=== PATIENT | female | born 1960 | race Caucasian/White ===

== ENCOUNTER 2022-04-29 08:22 | Outpatient (CLI) | payer OTHER, SELFPAY ==
--- NOTE | 2022-04-29 | ECHO_ITS ---
Patient Info Name: Dilcia Arzola Age: 61 years : 1960 Gender: Female Ht: 63 in Wt: 194 lbs BSA: 2.02 m2 HR: 83 bpm BP: 110 / 73 mmHg Heart Rhythm: Sinus Rhythm Exam Date: 04/29/2022 9:23 AM Exam Location: [facility] Pulmonary Patient Status: Outpatient Admit Date: 04/29/2022 Staff Ordering Physician: PerryJeffery MD Brake Operator Helper: Jorden Rocha, MARYBETH, RT Attending Provider: PerryJeffery MD Exam Type: CA echo doppler color flow Study Info Indications R06.02 - Shortness of breath Complete two-dimensional, color flow and Doppler transthoracic echocardiogram is performed. Strain analysis performed. Summary 1. Complete two-dimensional, color flow and Doppler transthoracic echocardiogram is performed. 2. Left ventricular systolic function is normal, estimated at 60-65%. 3. The left ventricular diastolic function is grade I diastolic dysfunction. 4. Right ventricular systolic function is normal. 5. The aortic root size at the sinus of Valsalva is dilated. 6. No significant valvular disease. Left Ventricle Left ventricular chamber dimension is normal. Left ventricular systolic function is normal, estimated at 60-65%. There is no increased left ventricular wall thickness. The left ventricular diastolic function is grade I diastolic dysfunction. Global longitudinal strain is -20 %. Right Ventricle Right ventricular chamber dimension is normal. Right ventricular systolic function is normal. Left Atria Left atrial chamber dimension is normal. Right Atria Right atrial chamber dimension is normal. Atrial Septum Intact interatrial septum visualized by color flow imaging. Aortic Valve The aortic valve is probable trileaflet. There is no aortic valve stenosis. There is no aortic valve regurgitation. Pulmonic Valve The pulmonic valve is not well visualized. Mitral Valve The mitral valve has normal leaflets. There is no mitral valve stenosis. There is trace mitral valve regurgitation. Tricuspid Valve There is trace tricuspid valve regurgitation. Pericardium/Pleural There is no pericardial effusion. Inferior Vena Cava Normal inferior vena cava with >50% collapse upon inspiration consistent with normal right atrial pressure. Aorta The aortic root size at the sinus of Valsalva is dilated. Left Ventricular Outflow Tract Name Value Normal LVOT 2D LVOT Diameter 2.0 cm LVOT Doppler LVOT Peak Gradient 5 mmHg LVOT Mean Gradient 3 mmHg LVOT VTI 22 cm LVOT VTI/AV VTI Ratio 0.9 LVOT Stroke Volume 65 ml LVOT CO 5.6 l/min LVOT CI 2.8 l/min/m2 Mitral Valve Name Value Normal MV Doppler MV Decel [place]
--- NOTE | 2022-04-29 | EST_ITS ---
Patient Info Name: Dilcia Arzola Age: 61 years : 1960 Gender: Female Ht: 65 in Wt: 194 lbs BSA: 2.04 m2 Exam Date: 04/29/2022 10:42 AM Exam Location: [facility] Stress Patient Status: Outpatient Admit Date: 04/29/2022 Staff Ordering Physician: Perry, Jeffery JUAREZ Attending Provider: Perry, Jeffery JUAREZ Exercise Technologist: Allyson Mejia RDCS Nurse: ENDER CASTILLO NP Exam Type: CA stress test treadmill Study Info Indications R06.02 - Shortness of breath A treadmill exercise stress test was performed. Summary 1. No abnormal ST/T wave changes diagnostic of ischemia with exercise. 2. Exercise capacity impaired at <6 METS. Protocol: Noe Stress ECG Details Stage: REST Duration (min): 1 min : 51 sec Speed (mph): 0.0 Grade (%): 0 HR (bpm): 86 SBP (mmHg): 142 DBP (mmHg): 79 METS: --- Stage: REST Duration (min): 4 min : 49 sec Speed (mph): 0.0 Grade (%): 0 HR (bpm): 81 SBP (mmHg): 142 DBP (mmHg): 79 METS: --- Stage: STAGE 1 Duration (min): 1 min : 0 sec Speed (mph): 1.7 Grade (%): 10 HR (bpm): 150 SBP (mmHg): 142 DBP (mmHg): 79 METS: --- Stage: STAGE 1 Duration (min): 1 min : 30 sec Speed (mph): 1.7 Grade (%): 10 HR (bpm): 164 SBP (mmHg): 142 DBP (mmHg): 79 METS: --- Stage: RECOVERY Duration (min): 0 min : 29 sec Speed (mph): 0.0 Grade (%): 0 HR (bpm): 160 SBP (mmHg): 142 DBP (mmHg): 79 METS: --- Stage: RECOVERY Duration (min): 1 min : 29 sec Speed (mph): 0.0 Grade (%): 0 HR (bpm): 142 SBP (mmHg): 167 DBP (mmHg): 74 METS: --- Stage: RECOVERY Duration (min): 2 min : 29 sec Speed (mph): 0.0 Grade (%): 0 HR (bpm): 131 SBP (mmHg): 167 DBP (mmHg): 74 METS: --- Stage: RECOVERY Duration (min): 3 min : 29 sec Speed (mph): 0.0 Grade (%): 0 HR (bpm): 123 SBP (mmHg): 182 DBP (mmHg): 92 METS: --- Stage: RECOVERY Duration (min): 4 min : 29 sec Speed (mph): 0.0 Grade (%): 0 HR (bpm): 115 SBP (mmHg): 182 DBP (mmHg): 92 METS: --- Stage: RECOVERY Duration (min): 5 min : 29 sec Speed (mph): 0.0 Grade (%): 0 HR (bpm): 118 SBP (mmHg): 151 DBP (mmHg): 93 METS: --- Stage: RECOVERY Duration (min): 6 min : 29 sec Speed (mph): 0.0 Grade (%): 0 HR (bpm): 121 SBP (mmHg): 136 DBP (mmHg): 95 METS: --- Stage: RECOVERY Duration (min): 7 min : 16 sec Speed (mph): 0.0 Grade (%): 0 HR (bpm): 98 SBP (mmHg): 136 DBP (mmHg): 95 METS: --- Rest HR: 81 bpm Peak HR: 165 bpm Rest Sys BP: 142 mmHg Peak Sys BP: 182 mmHg Max Pred HR: 161 bpm % Max Pred HR: 102 % Target HR: 137 bpm Max RPP: 30,030 bpm*mmHg Cole Score: -4 Target HR Summary: Patient's target heart rate was achieved BP Response: Normal blood pressure resp
== END 2022-04-29 08:23 | disposition home or self-care (01) ==
LOC: ANHCARD 08:26
PROVIDERS: PCP Internal Medicine; Visit Provider Internal Medicine
DX: R06.02 Shortness of breath (principal)
CPT/HCPCS: 93017; 93306

== ENCOUNTER 2023-07-01 07:14 | Emergency (ER) | payer OTHER, SELFPAY ==
[2023-07-01] VITALS (17 sets, daily range): BP systolic 103–154; BP diastolic 75–105; PULSE 86–105; RESP 16–18; TEMP 36.6; O2SAT 93–100
--- NOTE | ~2023-07-01 | CT_ITS ---
EXAMINATION: CT abdomen pelvis w con DATE: 07/01/2023 08:24 INDICATION: Epigastric abdominal pain. Nausea, diarrhea TECHNIQUE: Computed tomography (CT) of the abdomen and pelvis was performed with 100 CC Omnipaque 350 intravenous contrast. Automated exposure control and iterative reconstruction technique were employe d. Exam dose: 736.85 mGy-cm total exam DLP. COMPARISON: None. FINDINGS: The lung bases are clear. Normal heart size. No pericardial or pleural effusion. Status post cholecystectomy. No bile duct or pancreatic duct dilatation. Hepatic steatosis 10 mm hepatic cyst. No hepatic, splenic, pancreatic, and adrenal or renal space-occupying mass lesion is detected. No renal mass lesion or urinary tract calculus or hydroureteronephrosis. Normal caliber of the abdominal aorta. No intraperitoneal or retroperitoneal or pelvic mass lesion or adenopathy or ascites. The urinary bladder is evacuated. Status post hysterectomy. Probable appendectomy. No bowel obstruction, bowel wall thickening, pneumatosis or intraperitoneal free air is detected. No suspicious osteolytic or osteoblastic lesions. IMPRESSION: 10 mm hepatic cyst Hepatic steatosis Status post cholecystectomy Status post hysterectomy Probable appendectomy Reviewed, dictated and finalized at [facility]. Reviewed, dictated and finalized at [facility]. ENT SAFETY ATTENDANT
[2023-07-01 07:40] LABS: Basophils Absolute Auto 0.1 K/mm3 (0.0-0.1); Basophils Percent Auto 0.6 % (0.2-1.2); Eosinophils Percent Auto 0.2 % (0-4.4); Hemoglobin 14.4 g/dL (12.0-15.0); Immature Granulocyte Absolute 0.07 K/mm3 (0.00-0.031); Immature Granulocyte Percent A 0.6 % (0-0.5); Lymphocytes Absolute Auto 2.63 K/mm3 (0.9-3.2); Lymphocytes Percent Auto 21.4 % (18.3-44.2); Mean Corpuscular HGB Conc 32.7 g/dl (32-36); Mean Corpuscular Hemoglobin 29.6 pg (26-34); Mean Corpuscular Volume 90.3 fl (80-100); Mean Platelet Volume 9.5 fl (7.4-10.4); Monocytes Absolute Auto 0.5 K/mm3 (0.1-0.6); Monocytes Percent Auto 4.2 % (2.6-8.5); Platelet Count Result 391 k/mm3 (150-375); Red Blood Count 4.87 M/mm3 (4.2-5.4); Red Cell Distribution Width 12.8 % (11.5-14.5); White Blood Count 12.3 K/mm3 (4.5-10.0)
[2023-07-01 07:52] LABS: Alanine Aminotransferase 24 U/L (6-35); Alkaline Phosphatase 96 U/L (38-126); Anion Gap 15 mmol/L (8-16); Aspartate Amino Transferase 34 U/L (14-36); Bilirubin,Total 1.6 mg/dL (0.2-1.3); Blood Urea Nitrogen 17 mg/dL (7-17); Calcium 10.1 mg/dL (8.4-10.2); Carbon Dioxide 20 mmol/L (22-30); Chloride 107 mmol/L (98-107); Estimated CRCL calculation 86 ml/min; Estimated Glomerular Filt Rate > 60; Glucose 157 mg/dL (65-110); Lipase 103 U/L (23-300); Potassium 3.6 mmol/L (3.4-5.0); Sodium 142 mmol/L (137-145)
[2023-07-01] MEDS: DICYCLOMINE HCL INJ 20 MG/2 ML VIAL IM (07:52)
[2023-07-01] MEDS: ONDANSETRON INJ 4 MG/2 ML VIAL IV PUSH (07:52)
[2023-07-01] MEDS: SODIUM CHLORIDE 0.9% IV 1,000 ML 999 ML IV CONT (07:52)
[2023-07-01 08:25] LABS: Appearance Urine Clear (Clear); Bacteria Urine 1+ /hpf; Bilirubin Urine Negative (Negative); Blood Urine Negative (Negative); Color Urine Yellow (Yellow); Glucose Urine UA Negative (Negative); Ketones Urine 3+ mg/dL (Negative); Leukocyte Esterase Ur 1+ LEU/UL (Negative); Nitrate Urine Negative (Negative); Non Pathogenic Casts 0-2; Protein Urine Trace mg/dL (Negative); Specific Grav Ur 1.025 (1.001-1.035); Squamous Epithelial Cell Urine Moderate /hpf (Few); pH Urine 7.5 (5.0-9.0)
[2023-07-01 08:27] LABS: Add Urine Microscopic? YES
--- NOTE | 2023-07-01 09:17 | ED.ABDPAIN ---
HPI - Abdominal Pain General Chief Complaint: Abdominal Pain Stated Complaint: abd pain Time Seen by Provider: 07/01/23 07:19 History of Present Illness HPI narrative: Patient is a 63-year-old female who presents ER with abdominal pain. Epigastric and cramping. Ongoing for 2 days. No radiation. It is associated with nausea as well as diarrhea. No fevers or chills or sweats. Cannot identify any aggravating or alleviating factors. No known sick contacts. patient reports this is happen to her 9 times over the last year without a diagnosis. She has not seen a GI physician. Related Data Allergies Allergy/AdvReac Type Severity Reaction Status Date / Time acetaminophen Allergy Unknown Verified 08/30/08 13:02 codeine Allergy Unknown Verified 08/30/08 13:02 NKFA Allergy Unknown Uncoded 11/08/02 13:43 Review of Systems Review of Systems: All systems reviewed & are unremarkable except as noted in HPI and below Constitutional: Constitutional: Reports no additional constitutional complaints ENT: Reports system reviewed and no additional complaints, except as documented Cardiovascular: Cardiovascular: Reports no additional cardiovascular complaints Respiratory: Respiratory: Reports no additional respiratory complaints Gastrointestinal: Gastrointestinal: Reports abdominal pain, Reports diarrhea, Reports nausea and Denies vomiting Genitourinary: Genitourinary: Reports no additional female genitourinary complaints Musculoskeletal: Musculoskeletal: Reports no additional musculoskeletal complaints PMFSH Past Medical History Medical History (Updated 07/01/23 @ 10:05 by Urban Gipson MD) Anxiety Asthma Surgical History Surgical History (Updated 07/01/23 @ 09:18 by Urban Gipson MD) History of appendectomy History of hysterectomy Exam Narrative: GENERAL: Anxious and tearful, well-nourished, and in no acute distress. HEAD: Normocephalic, atraumatic. ENT: Mucous membranes moist. NECK: Supple. CHEST: Clear to auscultation. No respiratory distress. HEART: Regular rate and rhythm. Normal peripheral pulses. ABDOMEN: Soft, mild epigastric discomfort without guarding, nondistended, normal active bowel sounds. EXTREMITIES: Normal range of motion. No edema. SKIN: Warm, dry, no rash. NEURO: Alert and oriented x3. PSYCH: Normal mood and affect. Course Course Emergency Course: Patient formed results. Hydrated. Will treat with antispasmodics and Gas-X. Patient would like loperamide here. Patient also has borderline UTI but does report dysuria so we will give her ciprofloxacin. Vital Signs Vital signs: Vital Signs Temperature 97.9 F 07/01/23 07:22 Pulse Rate 105 H 07/01/23 07:22 Respiratory Rate 18 07/01/23 07:22 Blood Pressure 154/84 H 07/01/23 07:22 Pulse Oximetry 98 07/01/23 07:22 Oxygen Delivery Room Air 07/01/23 07:22 Temperature 97.9 F 07/01/23 07:22 Pulse Rate 86 07/01/23 10:26 Respiratory Rate 16 07/01/23 10:26 Blood Pressure 140/77 07/01/23 10:26 Pulse Oximetry 98 07/01/23 10:26 Oxygen Delivery Room Air 07/01/23 07:22 MDM - Abdominal Pain Lab Data 07/01/23 07:28 07/01/23 07:28 Labs: Lab Results 07/01/23 07/01/23 Range/Units 07:28 08:14 WBC 12.3 H (4.5-10.0) K/mm3 RBC 4.87 (4.2-5.4) M/mm3 Hgb 14.4 (12.0-15.0) g/dL Hct 44.0 (37.0-47.0) % MCV 90.3 (80-100) fl MCH 29.6 (26-34) pg MCHC 32.7 (32-36) g/dl RDW 12.8 (11.5-14.5) % Plt Count 391 H (150-375) k/mm3 MPV 9.5 (7.4-10.4) fl Immature Gran % (Auto) 0.6 H (0-0.5) % Neut % (Auto) 73.0 (45.5-73.1) % Lymph % (Auto) 21.4 (18.3-44.2) % [place] % (Auto) 4.2 (2.6-8.5) % Eos % (Auto) 0.2 (0-4.4) % Baso % (Auto) 0.6 (0.2-1.2) % Lymph # (Auto) 2.63 (0.9-3.2) K/mm3 [place] # (Auto) 0.5 (0.1-0.6) K/mm3 Eos # (Auto) 0.0 (0-0.3) K/mm3 Baso # (Auto) 0.1 (0.0-0.1) K/mm3 Abs Immat Gra
== END 2023-07-01 10:55 | disposition home or self-care (01) ==
PROVIDERS: Emergency Provider Emergency Medicine; PCP Internal Medicine
DX: K52.9 Noninfective gastroenteritis and colitis, unspecified (principal); N39.0 Urinary tract infection, site not specified; J45.909 Unspecified asthma, uncomplicated; Z90.710 Acquired absence of both cervix and uterus; Z90.49 Acquired absence of other specified parts of digestive tract; K76.0 Fatty (change of) liver, not elsewhere classified; K76.89 Other specified diseases of liver
CPT/HCPCS: 36415; 74177; 80053; 81001; 83690; 85025; 87086; 96361; 96372; 96374; 99284; J0500; J2405; J7030; Q9967

== ENCOUNTER 2023-07-02 05:09 | Observation (INO) | payer OTHER, MEDICAID, SELFPAY ==
--- NOTE | ~2023-07-02 | CT_ITS ---
CT of the Abdomen and Pelvis: Indication: Abdominal pain Technique: 2.5 mm axial scans were obtained through the abdomen and pelvis following intravenous adm inistration of 100 cc of Omnipaque 350. Dose reduction technique was used on this scan by utilizing a utomated exposure control and iterative reconstruction technique. The dose-length product (DLP) was 5 82.14 mGy-cm. COMPARISON: 07/01/2023 Findings: Scans through the lung bases are unremarkable. Diffuse fatty infiltration of the liver noted. The spleen, pancreas, adrenals and kidneys are within normal limits. Status post cholecystectomy. No evidence of aortic aneurysm. No lymphadenopathy. No bowel obstruction or bowel wall thickening. There is no evidence to suggest acute appendicitis. Images through the pelvis were performed. Urinary bladder unremarkable. No pelvic mass seen. No ascit es. Impression: No acute abnormality. Diffuse fatty infiltration of liver. Reviewed, dictated and finalized at [facility]. ORIAN RESEARCH ASSISTANT Impression: No acute abnormality. Diffuse fatty infiltration of liver.
--- NOTE | ~2023-07-02 | XR_ITS ---
Portable chest x-ray Comparison: 03/21/2007 Clinical History: Epigastric pain Findings: Lungs are clear, without focal consolidation or pleural effusion. Cardiomediastinal silho uette is stable. Bones and soft tissues are unremarkable. Impression: Normal chest. Reviewed, dictated and finalized at [facility]. [facility] Impression: Normal chest.
[2023-07-02 05:12] VITALS: BP 151/74; PULSE 75; RESP 18; TEMP 37; O2SAT 99
--- NOTE | 2023-07-02 05:45 | ECG_ITS ---
Measurements Intervals Ki[place] Rate: 67 P: 64 TX: 140 QRS: 56 QRSD: 85 T: 50 QT: 392 QTc: 416 Interpretive Statements SINUS RHYTHM POSSIBLE LEFT ATRIAL ENLARGEMENT [-0.1mV P WAVE IN V1/V2] NO PREVIOUS ECG AVAILABLE FOR COMPARISON Electronically Signed On 07-02-2023 12:39:22 BRAND STRATEGY MANAGER by Jeffery Samuel M.D.
[2023-07-02] MEDS: FAMOTIDINE 20 MG/2 ML VIAL IV PUSH ×3 (06:13→20:43)
[2023-07-02] MEDS: SODIUM CHLORIDE 0.9% IV 1,000 ML 999 ML IV CONT (06:13)
--- NOTE | 2023-07-02 06:17 | ED.ABDPAIN ---
HPI - Abdominal Pain General Chief Complaint: Abdominal Pain Stated Complaint: abd pain Time Seen by Provider: 07/02/23 05:45 Source: patient Limitations: no limitations History of Present Illness HPI narrative: Patient is a 63-year-old female presents to the emergency department complaining of abdominal pain and nausea and vomiting. Patient states she has been having epigastric abdominal pain for the past 2 days, comes and goes, described as a pressure, nonradiating, has not noticed anything that brings it on or makes ago way, states that she was in the emergency department yesterday for this and treated for urinary tract infection in the workup look good and she was overall feeling better and went home however she can not woke up this morning around 330 in the pain and returned and she is having recurrent nausea with an episode of emesis today that was foamy in appearance prior to arrival in the emergency department is still feeling nauseous. Patient denies any diarrhea today but was having a little bit yesterday. Patient admits to history of this pain in the past over past 1 year and her last time she felt this was in May however she changed her diet to eliminate a lot of processed foods and see what that was helping and denies following up with her primary care physician or any saturator tender regarding this. Patient denies having a gallbladder or appendix and these are both been removed. Patient denies any history kidney stones, urinary discomfort, bloody urine, bloody bowel movements, chest pain, fever, sore throat, nasal congestion, cough, numbness, weakness, recent injuries, recent illness, rash. Patient admits to some mild difficulty breathing. Related Data Allergies Allergy/AdvReac Type Severity Reaction Status Date / Time acetaminophen Allergy Unknown Verified 08/30/08 13:02 codeine Allergy Unknown Verified 08/30/08 13:02 NKFA Allergy Unknown Uncoded 11/08/02 13:43 Review of Systems Review of Systems: A 10 system review of systems was completed on the patient and is negative except for what is stated in the HPI. Nursing and ancillary documentation was reviewed. [facility] Past Medical History Medical History (Updated 07/02/23 @ 08:13 by Roman Bates DO) Anxiety Asthma Surgical History Surgical History (Updated 07/01/23 @ 09:18 by Urban Gipson MD) History of appendectomy History of hysterectomy Comments At time of signature, I have reviewed and agree with nursing past medical, surgical, social and family history unless otherwise noted. Please see the nursing chart for further information. There is no relevant family history pertinent to the presenting complaint. Exam Narrative: CONST: No acute distress. Well nourished. HENMT: Head is normocephalic and atraumatic. Tacky mucous membranes. No posterior oropharynx erythema. EYES: No conjunctival icterus, injection, or pallor. PERRL. NECK: No meningeal signs. RESP: Able to speak in full sentences. Normal respiratory effort. CTAB. CARDIO: Regular rate. Regular rhythm. 2+ DP and radial pulses bilaterally. GI: Nondistended. Soft. mild tenderness to palpation in the epigastric region. No rebound or guarding or rigidity. No palpable masses or hernias. Negative Rocha sign. : No CVA tenderness to palpation. SKIN: No rashes or lesions noted on exposed skin. NEURO: Oriented x3. Moves all extremities. No focal neurological deficits. EXTREM/MSK/BACK: No pedal edema. PSYCH: Normal affect. Course Vital Signs Vital signs: Vital Signs Temperature 98.6 F 07/02/23 05:12 Pulse Rate 75 07/02/23 05:12 Respiratory Rate 18 07/02/23 05:12 Blood Pressure 151/74 H 07/02/23 05:12 Pulse Oximetry 99 07/02/23 05:12 Oxygen Delivery Room Air 07/02/23 05:12 Temperature 98.6 F 07/02/23 05:12 Pulse Rate 75 07/02/23 05:12 Respiratory Rate 18 07/02/23 05:12 Blood Pressure 151/74 H 07/02/23 05:12 Pulse Oximetry
[2023-07-02 06:19] LABS: Basophils Absolute Auto 0.1 K/mm3 (0.0-0.1); Basophils Percent Auto 1.2 % (0.2-1.2); Eosinophils Absolute Auto 0.1 K/mm3 (0-0.3); Eosinophils Percent Auto 0.8 % (0-4.4); Hematocrit 40.3 % (37.0-47.0); Hemoglobin 13.2 g/dL (12.0-15.0); Immature Granulocyte Absolute 0.04 K/mm3 (0.00-0.031); Immature Granulocyte Percent A 0.4 % (0-0.5); Lymphocytes Absolute Auto 2.23 K/mm3 (0.9-3.2); Lymphocytes Percent Auto 24.9 % (18.3-44.2); Mean Corpuscular HGB Conc 32.8 g/dl (32-36); Mean Corpuscular Hemoglobin 29.8 pg (26-34); Mean Platelet Volume 9.4 fl (7.4-10.4); Monocytes Absolute Auto 0.4 K/mm3 (0.1-0.6); Monocytes Percent Auto 4.9 % (2.6-8.5); Neutrophils Absolute Auto 6.1 K/mm3 (1.3-6.7); Neutrophils Percent Auto 67.8 % (45.5-73.1); Platelet Count Result 300 k/mm3 (150-375); Red Blood Count 4.43 M/mm3 (4.2-5.4)
[2023-07-02 06:31] LABS: Partial Thromboplastin Time 26.6 SECONDS (22.3-36.8); Prothrombin Time 13.7 Seconds (11.1-14.7)
[2023-07-02 06:31] LABS: Lactic Acid Reflex 1.8 mmol/L (0.7-2.0)
[2023-07-02 06:41] LABS: Alanine Aminotransferase 22 U/L (6-35); Albumin Level 4.1 g/dL (3.5-5.1); Alkaline Phosphatase 78 U/L (38-126); Anion Gap 9 mmol/L (8-16); Aspartate Amino Transferase 33 U/L (14-36); Bilirubin,Total 1.6 mg/dL (0.2-1.3); Blood Urea Nitrogen 14 mg/dL (7-17); Calcium 9.3 mg/dL (8.4-10.2); Carbon Dioxide 21 mmol/L (22-30); Chloride 108 mmol/L (98-107); Estimated CRCL calculation 75 ml/min; Estimated Glomerular Filt Rate > 60; Glucose 123 mg/dL (65-110); Lipase 106 U/L (23-300); Magnesium 2.1 mg/dL (1.6-2.3); Potassium 3.5 mmol/L (3.4-5.0); Sodium 138 mmol/L (137-145)
[2023-07-02 06:42] LABS: Troponin I < 0.012 ng/mL (0.000-0.034)
[2023-07-02] MEDS: ONDANSETRON INJ 4 MG/2 ML VIAL IV PUSH (06:46)
[2023-07-02 06:49] LABS: CRP 0.5 mg/dL (<1.0)
[2023-07-02 06:56] LABS: Influenza A QL RT-PCR Negative (Negative); Influenza B QL RT-PCR Negative (Negative); RSV RNA, RT-PCR Negative (Negative); SARS-CoV-2 RNA PCR Negative (Negative)
[2023-07-02 07:30] LABS: Serum Qual hCG Negative
[2023-07-02 07:31] LABS: SPREG INTERNAL CONTROL Positive
[2023-07-02] MEDS: SUCRALFATE 1 GM TABLET PO (09:33)
[2023-07-02] MEDS: DICYCLOMINE HCL INJ 20 MG/2 ML VIAL IM (09:34)
[2023-07-02] MEDS: MORPHINE SULFATE (*CRX) 4 MG/ML INJ IV PUSH (09:34)
[2023-07-02] MEDS: SODIUM CHLORIDE 0.9% IV 1,000 ML 125 ML IV CONT ×2 (09:34→17:41)
[2023-07-02 10:04] VITALS: BP 148/65; PULSE 80; RESP 16; O2SAT 98
[2023-07-02 10:36] VITALS: BMI 28.3
--- NOTE | 2023-07-02 10:45 | ADMGEN ---
This patient, Dilcia Arzola, was admitted to Medical Room 346-01. Patient/family oriented to hospital policies and general routines including ID bracelet, bed and alarms, visiting hours, pain management, procedures, bathroom and other care routines, personal items, smoking policy, room service/diet, and visiting hours. Information on how to activate the Rapid Response Team has been discussed. Patient/Family are encouraged to report perceived risks to care and to ask questions if they do not understand what they are told or what they should do.
--- NOTE | 2023-07-02 12:33 | WPDGICN ---
Assessment and Plan Assessment and plan (1) Intractable abdominal pain: Code(s): R10.9 - Unspecified abdominal pain Status: Acute Assessment and Plan: better now noted use of nsaid's will do egd in am to assess if ulcer, esophagitis, etc iv protonix for now ok to start diet and npo after midnight (2) Nausea & vomiting: Qualifiers: Vomiting type: unspecified Qualified Code(s): R11.2 - Nausea with vomiting, unspecified Code(s): R11.2 - Nausea with vomiting, unspecified Status: Acute Assessment and Plan: better (3) NSAID long-term use: Code(s): Z79.1 - emt intermediate (current) use of non-steroidal anti-inflammatories (NSAID) Status: Acute Assessment and Plan: recommend to stop (4) Colon cancer screening: Code(s): Z12.11 - Encounter for screening for malignant neoplasm of colon Status: Acute Assessment and Plan: had cologuard last year if she ever wants a colonoscopy then will contact office GI Consult Note Consult date/time: 07/02/23 12:33 Reason for consult: n/v, epigastric pain HPI: Dilcia Arzola is a 63 year old female with history of arthritis on meloxicam for over a year who has been having intermittent nausea and epigastric pain for several months. This time started with progressive worsening pain with more nausea and emesis, this time she came here and was admitted. No signs of GIB, feeling better after medications. Never had EGD, she is not using PPI. CT scan reviewed, no acute findings, fatty liver. Bili 1.6, liver enzymes and lipase normal. Review of Systems Constitutional: Constitutional: Denies headache(s) and Denies weakness Eyes: Eyes: Denies blurry vision ENT: Reports Normal hearing present, Denies headache(s) and Denies neck pain Cardiovascular: Cardiovascular: Denies chest pain and Denies dyspnea Respiratory: Respiratory: Denies dyspnea Gastrointestinal: Gastrointestinal: Reports no additional gastrointestinal complaints Genitourinary: Genitourinary: Denies dysuria Musculoskeletal: Musculoskeletal: Denies neck pain Integumentary/Breasts: Skin/Breast: Denies dry skin Neurologic: Reports Normal hearing present, Denies headache(s) and Denies weakness Psychiatric: Psychiatric: Denies anxiety Endocrine: Endocrine: Denies change in body appearance Hematologic/Lymphatic: Hematologic/Lymphatic: Denies easy bleeding Allergic/Immunologic: Allergic/Immunologic: Denies urticaria PMFSH Past Medical History Medical History (Updated 07/02/23 @ 12:38 by Sean Beard MD) Anxiety Asthma Colon cancer screening NSAID long-term use Surgical History Surgical History (Updated 07/01/23 @ 09:18 by Urban Gipson MD) History of appendectomy History of hysterectomy Social History Social History Smoking status: Former smoker Alcohol intake: former Substance use: former Do You Feel Safe in your Home?: Yes Lack of Transportation: YES Lack of Food: Never True Current Housing: I Have Housing Concerned About Future Housing: No Difficulty Paying Gas/Electric Bills: No Difficulty Paying for Meds: No Currently Unemployed: No Education: Decline to Answer Difficulty w/ Childcare or Family Care: No Spiritual care concerns: No Meds Home Medications and Allergies Home Medications Medication Instructions Recorded Confirmed Type ciprofloxacin HCl 500 mg tablet 500 mg PO Q12H #10 tabs 07/01/23 07/02/23 Rx (Cipro) dicyclomine 20 mg tablet 20 mg PO QID #20 tabs 07/01/23 07/02/23 Rx simethicone 125 mg capsule 125 mg PO QID abdominal distention 07/01/23 07/02/23 Rx #20 caps Allergies Allergy/AdvReac Type Severity Reaction Status Date / Time No Known Allergies Allergy Verified 07/02/23 10:28 Vital Signs Vital Signs - 24 hr 07/02/23 05:12 07/02/23 10:04 07/02/23 10:58 Temperature 98.6 F Pulse Rate 75 80 Respiratory Rate 18 16 B
--- NOTE | 2023-07-02 13:57 | PM.IMHP ---
H&P: HPI History of Present Illness Date/Time: 07/02/23 13:25 Chief Complaint: Nausea and abdominal pain. Narrative: This is a very pleasant 63-year-old female with arthritis on meloxicam who presented to the emergency department for evaluation of intermittent nausea and abdominal pain. The patient provides the following history. She reports having intermittent pressure-like discomfort in the epigastric region over the last several months, at times associated with nausea. The last several days her symptoms have been worse than usual and she had developed diarrhea. She was seen in the emergency department yesterday for her symptoms which time her workup was pretty unremarkable and she was told she likely had gastroenteritis. She was discharged on ciprofloxacin for possible urinary tract infection, pending urine culture which came back as mixed yeimi not indicative of UTI. Her symptoms have been persistent and she returned today. With further questioning she reports that increase in stress recently as she and her have moved in with her aging mother in law to help out in this is caused an increase in stress. She is on meloxicam daily though she does not take any other NSAIDs. No significant caffeine or alcohol use. She denies hematemesis, melena, and hematochezia. No history of gastritis or peptic ulcers to her knowledge. Review of Systems Review of Systems: Twelve systems were reviewed and are negative except for as per HPI. [facility] Past Medical History Medical History Anxiety Arthritis Asthma Fatty liver Noted on CT scan 07/02/2023. Hearing loss NSAID long-term use Surgical History Surgical History History of appendectomy History of section History of hysterectomy History of laparoscopy History of tonsillectomy Family History Family History Other Family history non-contributory Social History Social History Social History: Surrogate medical decision maker: Zack Arzola, spouse. Code status: Full code. Smoking status: Former smoker Alcohol intake: former Substance use: former Do You Feel Safe in your Home?: Yes Lack of Transportation: YES Lack of Food: Never True Current Housing: I Have Housing Concerned About Future Housing: No Difficulty Paying Gas/Electric Bills: No Difficulty Paying for Meds: No Currently Unemployed: No Education: Decline to Answer Difficulty w/ Childcare or Family Care: No Spiritual care concerns: No Meds Home Medications and Allergies Home Medications Medication Instructions Recorded Confirmed Type ciprofloxacin HCl 500 mg tablet 500 mg PO Q12H #10 tabs 07/01/23 07/02/23 Rx (Cipro) dicyclomine 20 mg tablet 20 mg PO QID #20 tabs 07/01/23 07/02/23 Rx simethicone 125 mg capsule 125 mg PO QID abdominal distention 07/01/23 07/02/23 Rx #20 caps Allergies Allergy/AdvReac Type Severity Reaction Status Date / Time No Known Allergies Allergy Verified 07/02/23 10:28 Vital Signs Vital Signs - 24 hr 07/02/23 05:12 07/02/23 10:04 07/02/23 10:58 Temperature 98.6 F Pulse Rate 75 80 Respiratory Rate 18 16 Blood Pressure 151/74 H 148/65 H Pulse Oximetry 99 98 Oxygen Delivery Room Air Room Air Exam Narrative: General: Well-developed, nontoxic-appearing female in the semi-Andrade position in bed. Weight: 77.11 kg. BMI: 28.3. HEENT: PERRL, EOMI. Sclera anicteric. Oral mucosa moist. Neck: Supple. Respiratory: Lungs are clear to auscultation bilaterally. Cardiovascular: Regular rate and rhythm with S1-S2. Gastrointestinal: Abdomen is soft and nondistended with positive bowel sounds. She is tender to palpation over the epigastric region. No guarding or rebound tenderness. Ski
[2023-07-02] MEDS: ACETAMINOPHEN 325 MG TABLET 650 MG PO (14:21)
[2023-07-02 16:00] VITALS: BP 125/70; PULSE 66; RESP 16; TEMP 37; O2SAT 98
[2023-07-02 21:26] VITALS: BP 131/65; PULSE 64; RESP 20; TEMP 37; O2SAT 97
[2023-07-03] VITALS (8 sets, daily range): BP systolic 125–152; BP diastolic 70–92; PULSE 60–83; RESP 12–20; TEMP 36.6–37.1; O2SAT 96–99
[2023-07-03] MEDS: ONDANSETRON INJ 4 MG/2 ML VIAL IV PUSH ×2 (02:10→17:58)
[2023-07-03] MEDS: MORPHINE SULFATE (*CRX) 2 MG/ML INJ IV PUSH (02:10)
[2023-07-03 06:35] LABS: Hematocrit 36.7 % (37.0-47.0); Hemoglobin 12.2 g/dL (12.0-15.0); Mean Corpuscular HGB Conc 33.2 g/dl (32-36); Mean Corpuscular Hemoglobin 30.1 pg (26-34); Mean Corpuscular Volume 90.6 fl (80-100); Mean Platelet Volume 9.3 fl (7.4-10.4); Platelet Count Result 285 k/mm3 (150-375); Red Blood Count 4.05 M/mm3 (4.2-5.4); Red Cell Distribution Width 12.7 % (11.5-14.5)
[2023-07-03 06:42] LABS: Anion Gap 5 mmol/L (8-16); Blood Urea Nitrogen 7 mg/dL (7-17); Calcium 8.7 mg/dL (8.4-10.2); Carbon Dioxide 25 mmol/L (22-30); Chloride 109 mmol/L (98-107); Estimated CRCL calculation 86 ml/min; Estimated Glomerular Filt Rate > 60; Glucose 106 mg/dL (65-110); Magnesium 2.3 mg/dL (1.6-2.3); Potassium 3.3 mmol/L (3.4-5.0); Sodium 139 mmol/L (137-145)
[2023-07-03 06:58] LABS: Hemoglobin A1C 5.4 % (<5.7)
[2023-07-03] MEDS: FAMOTIDINE 20 MG/2 ML VIAL IV PUSH (09:07)
[2023-07-03] MEDS: LACTATED RINGERS 1,000 ML 150 ML IV CONT (12:47)
--- NOTE | 2023-07-03 13:17 | WPDANESEPPF ---
Anes - Initial Pre Proc Eval Procedure: Operation Date: 07/03/23 14:00 Proposed Procedures p Esophagogastroduodenoscopy - Sean Beard MD Date/Time: 07/03/23 13:17 Surgeon: Prosper Webb MD Pre Op Diagnosis: intractable abdominal pain Patient Data Age: 63 Gender: F Height: 1.65 m Weight: 78.2 kg Last Vital Signs Temp 98.4 F 07/03/23 12:43 Pulse 76 07/03/23 12:43 Resp 18 07/03/23 12:43 BP 151/92 H 07/03/23 12:43 Pulse Ox 99 07/03/23 12:43 O2 Del Method Room Air 07/03/23 12:43 Allergies Allergy/AdvReac Type Severity Reaction Status Date / Time No Known Allergies Allergy Verified 07/02/23 10:28 Home Medications Medication Instructions Recorded Confirmed Type ciprofloxacin HCl 500 mg tablet 500 mg PO Q12H #10 tabs 07/01/23 07/02/23 Rx (Cipro) dicyclomine 20 mg tablet 20 mg PO QID #20 tabs 07/01/23 07/02/23 Rx simethicone 125 mg capsule 125 mg PO QID abdominal distention 07/01/23 07/02/23 Rx #20 caps Laboratory Tests 07/03/23 05:47 WBC 8.0 K/mm3 (4.5-10.0) RBC 4.05 L M/mm3 (4.2-5.4) Hgb 12.2 g/dL (12.0-15.0) Hct 36.7 L % (37.0-47.0) MCV 90.6 fl (80-100) MCH 30.1 pg (26-34) MCHC 33.2 g/dl (32-36) RDW 12.7 % (11.5-14.5) Plt Count 285 k/mm3 (150-375) MPV 9.3 fl (7.4-10.4) Sodium 139 mmol/L (137-145) Potassium 3.3 L mmol/L (3.4-5.0) Chloride 109 H mmol/L (98-107) Carbon Dioxide 25 mmol/L (22-30) Anion Gap 5 L mmol/L (8-16) BUN 7 D mg/dL (7-17) Creatinine 0.60 L mg/dL (0.7-1.0) Estim Creat Clear Calc 86 ml/min Estimated GFR > 60 (59 - ) Glucose 106 mg/dL (65-110) Hemoglobin A1c 5.4 % (<5.7) Calcium 8.7 mg/dL (8.4-10.2) Magnesium 2.3 mg/dL (1.6-2.3) Patient hx anesthesia problems: none Family hx anesthesia problems: none Results Review: All pre-operative results and documents have been reviewed as part of the pre-operative evaluation. [facility] Past Medical History Medical History Anxiety Arthritis Asthma Fatty liver Noted on CT scan 07/02/2023. Hearing loss NSAID long-term use Surgical History Surgical History History of appendectomy History of section History of hysterectomy History of laparoscopy History of tonsillectomy Family History Family History Other Family history non-contributory Social History Social History Social History: Surrogate medical decision maker: Zack Arzola, spouse. Code status: Full code. Smoking status: Former smoker Alcohol intake: former Substance use: former Do You Feel Safe in your Home?: Yes Lack of Transportation: YES Lack of Food: Never True Current Housing: I Have Housing Concerned About Future Housing: No Difficulty Paying Gas/Electric Bills: No Difficulty Paying for Meds: No Currently Unemployed: No Education: Decline to Answer Difficulty w/ Childcare or Family Care: No Spiritual care concerns: No Anes - Eval Final PreProcedure Day of Procedure 07/03/23 13:17 Patient weight: normal Heart: regular rate and rhythm Lungs: clear to auscultation Airway: Mallampati scale class II Neurological: alert and oriented Last oral intake: >/= 8 hours ASA classification: III Emergent: no Anesthetic plan: proceed Anesthesia type and monitoring: general GIVS and standard monitoring Results Review: All pre-operative results and documents have been reviewed as part of the pre-operative evaluation. Informed Consent: The patient's anesthetic plan and its attendant risks and benefits were discussed with the patient/family/POA. Questions were solicited and answers provided to the satis
--- NOTE | 2023-07-03 14:15 | PM.IMPN ---
Progress Note: A&P Assessment and Plan (1) Epigastric pain: Code(s): R10.13 - Epigastric pain Status: Acute Assessment and Plan: The patient presented to the emergency department for evaluation of nausea and abdominal pain for the 2nd time in the last 2 days. She has arthritis and has been on meloxicam for well over a year. CTA of the abdomen and pelvis showing diffuse fatty infiltration of liver with no acute abnormality. GI consulted for possible GERD/gastritis. Analgesics and antiemetics are available as needed. EGD showing Gastritis. Started on omeprazole daily. (2) Nausea & vomiting: Qualifiers: Vomiting type: unspecified Qualified Code(s): R11.2 - Nausea with vomiting, unspecified Code(s): R11.2 - Nausea with vomiting, unspecified Status: Acute Assessment and Plan: antiemetics p.r.n. (3) NSAID long-term use: Code(s): Z79.1 - long term care social worker (current) use of non-steroidal anti-inflammatories (NSAID) Status: Acute Assessment and Plan: meloxicam put on hold and encourage discontinuation of this (4) Hyperglycemia: Code(s): R73.9 - Hyperglycemia, unspecified Status: Acute Assessment and Plan: hemoglobin A1c 5.4. (5) Arthritis: Code(s): M19.90 - Unspecified osteoarthritis, unspecified site Status: Acute Assessment and Plan: Tylenol p.r.n. Subjective Date/time seen: 07/03/23 14:15 Interval history: Patient continued to have abdominal pain. She denies any further nausea or vomiting. She is not having any diarrhea at this time either. She does have some epigastric tenderness to palpation. Exam Narrative: GENERAL: Comfortable, no acute distress HENMT: moist mucous membranes EYES: EOM intact b/l NECK: no lymphadenopathy RESPIRATORY: clear to auscultation CARDIO: RRR GI: soft, Mild epigastric tenderness, bowel sounds present SKIN: no rashes EXTREMITIES: no edema, redness or tenderness Objective Data Vital Signs Vital Signs: Vital Signs - 24 hr 07/02/23 16:00 07/02/23 21:26 07/02/23 21:26 Temperature 98.6 F 98.6 F Pulse Rate 66 64 Respiratory Rate 16 20 Blood Pressure 125/70 131/65 Pulse Oximetry 98 97 Oxygen Delivery Room Air 07/03/23 06:00 07/03/23 08:00 07/03/23 12:43 Temperature 98.8 F 98.4 F Pulse Rate 78 78 76 Respiratory Rate 18 18 18 Blood Pressure 140/87 151/92 H Pulse Oximetry 99 99 99 Oxygen Delivery Room Air Room Air 07/03/23 08:00 07/03/23 13:33 07/03/23 13:43 Temperature Pulse Rate 79 67 Respiratory Rate 15 12 Blood Pressure 125/82 143/77 H Pulse Oximetry 99 97 98 Oxygen Delivery Room Air Room Air Room Air 07/03/23 13:53 Temperature Pulse Rate 69 Respiratory Rate 18 Blood Pressure 133/78 Pulse Oximetry 99 Oxygen Delivery Room Air Intake/Output Intake/Output: Intake & Output 06/30/23 07/01/23 07/02/23 07/03/23 23:59 23:59 23:59 23:59 Intake Total 3140 550 Output Total 4 Balance 3140 546 Meds/Results Medications: Active Medications Generic Name Dose Route Start Last Admin Trade Name Freq PRN Reason Stop Dose Admin Acetaminophen 650 mg 07/02/23 14:04 07/02/23 14:21 Acetaminophen 325 Mg Tablet PO 650 mg Q6H PRN Administration Mild Pain (1-3) or Fever Dicyclomine HCl 20 mg 07/02/23 08:21 Dicyclomine Hcl Inj 20 Mg/2 Ml Vial IM Q6H PRN Abdominal Cramping Morphine Sulfate 2 mg 07/02/23 08:21 07/03/23 02:10 Morphine Sulfate (*Crx) 2 Mg/Ml Inj IV PUSH 2 mg Q2H PRN Administration Pain Rated 7-10 Ondansetron HCl 4 mg 07/02/23 08:21 07/03/23 02:10 Ondansetron Inj 4 Mg/2 Ml Vial IV PUSH 4 mg Q4H PRN Administration Nausea Pantoprazole Sodium 40 mg 07/04/23 09:00 Pantoprazole 40 Mg Tablet PO [facility] Radiology Results: ITS Impressions Chest X-Ray 07/02/23 06:34 Impression: Normal chest. Abdomen/Pelvis CT
[2023-07-04 05:43] VITALS: BP 128/77; PULSE 74; RESP 14; TEMP 36.2; O2SAT 99
[2023-07-04 06:22] LABS: Hematocrit 39.5 % (37.0-47.0); Hemoglobin 12.9 g/dL (12.0-15.0); Mean Corpuscular HGB Conc 32.7 g/dl (32-36); Mean Corpuscular Hemoglobin 29.9 pg (26-34); Mean Corpuscular Volume 91.4 fl (80-100); Mean Platelet Volume 9.3 fl (7.4-10.4); Platelet Count Result 277 k/mm3 (150-375); Red Blood Count 4.32 M/mm3 (4.2-5.4); Red Cell Distribution Width 12.3 % (11.5-14.5); White Blood Count 7.7 K/mm3 (4.5-10.0)
[2023-07-04 06:24] LABS: Anion Gap 11 mmol/L (8-16); Blood Urea Nitrogen 10 mg/dL (7-17); Calcium 8.9 mg/dL (8.4-10.2); Carbon Dioxide 23 mmol/L (22-30); Chloride 104 mmol/L (98-107); Estimated CRCL calculation 88 ml/min; Estimated Glomerular Filt Rate > 60; Glucose 109 mg/dL (65-110); Potassium 3.3 mmol/L (3.4-5.0); Sodium 138 mmol/L (137-145)
[2023-07-04] MEDS: PANTOPRAZOLE 40 MG TABLET PO (09:25)
[2023-07-04] MEDS: POTASSIUM CHLORIDE 20 MEQ ER TABLET 40 MEQ PO (09:28)
--- NOTE | 2023-07-04 12:34 | PM.DS ---
DS: Admitting Diagnosis Discharge Date 07/04/23 Admitting Diagnosis Nausea, vomiting DS: Discharge Diagnosis Discharge Diagnosis (1) Epigastric pain: Code(s): R10.13 - Epigastric pain Status: Acute (2) Nausea & vomiting: Qualifiers: Vomiting type: unspecified Qualified Code(s): R11.2 - Nausea with vomiting, unspecified Code(s): R11.2 - Nausea with vomiting, unspecified Status: Acute (3) NSAID long-term use: Code(s): Z79.1 - prison (current) use of non-steroidal anti-inflammatories (NSAID) Status: Acute (4) Hyperglycemia: Code(s): R73.9 - Hyperglycemia, unspecified Status: Acute (5) Arthritis: Code(s): M19.90 - Unspecified osteoarthritis, unspecified site Status: Acute DS: Summary Hospital Course Hospital Course: This is a 63-year-old female with a past medical history of arthritis present to the ED due to abdominal pain nausea vomiting. She is on meloxicam daily though she does not take any other NSAIDs. No significant caffeine or alcohol use. She denies hematemesis, melena, and hematochezia. No history of gastritis or peptic ulcers to her knowledge. GI consulted for EGD. EGD revealed gastritis. It was recommended that patient continue on omeprazole 40 mg daily. Patient's abdominal pain improved while in the hospital. Time Spent with Patient Time attestation: Total time spent providing and/or coordinating discharge services: Exam Narrative: GENERAL: Comfortable, no acute distress HENMT: moist mucous membranes EYES: EOM intact b/l NECK: no lymphadenopathy RESPIRATORY: clear to auscultation CARDIO: RRR GI: soft, no tenderness, bowel sounds present SKIN: no rashes EXTREMITIES: no edema, redness or tenderness DS: Data Data Completed and Pending Pending studies at discharge: Pending at discharge 07/03/23 13:28 Surgical [PTH] Routine Labs on day of discharge: Labs from last 24 hours 07/04/23 05:57 WBC 7.7 RBC 4.32 Hgb 12.9 Hct 39.5 MCV 91.4 MCH 29.9 MCHC 32.7 RDW 12.3 Plt Count 277 MPV 9.3 Sodium 138 Potassium 3.3 L Chloride 104 Carbon Dioxide 23 Anion Gap 11 BUN 10 Creatinine 0.60 L Estim Creat Clear Calc 88 Estimated GFR > 60 Glucose 109 Calcium 8.9 Discharge Plan Discharge Attending physician on discharge: Prosper Webb Consulting providers: Sean Beard Discharging Clinician: Lulú Arroyo Patient Disposition: Home, Self-Care Activity: as tolerated Diet: regular Discharge Instructions: DISCHARGE INSTRUCTIONS: Medications: Omeprazole 40 mg twice daily Avoid NSAID use such as ibuprofen, asprin, naproxin, etc.. Foods to limit or avoid: You may need to avoid acidic, spicy, or high-fat foods. Not all foods affect everyone the same way. You will need to learn which foods worsen your symptoms and limit those foods. The following are some foods that may worsen ulcer or gastritis symptoms: Beverages: Whole milk and chocolate milk, Hot cocoa and cola, Any beverage with caffeine, Regular and decaffeinated coffee, Peppermint and spearmint tea, Green and black tea, with or without caffeine, [place] and grapefruit juices, Drinks that contain alcohol Spices and seasonings: Black and red pepper, [place] powder, Mustard seed and nutmeg Other foods: Dairy foods made from whole milk or cream, Chocolate, Spicy or strongly flavored cheeses, such as jalapeno or black pepper, Highly seasoned, high-fat meats, such as sausage, salami, goldberg, ham, and cold cuts, Hot chiles and peppers, Tomato products, such as tomato paste, tomato sauce, or tomato juice Foods to include: Eat a variety of healthy foods from all the food groups. Eat fruits, vegetables, whole grains, and fat-free or low-fat dairy foods. Whole grains include whole-wheat breads, cereals, pasta, and brown rice. Choose lean meats, poultry (chicken and turkey), fish, beans, eggs, and nut
== END 2023-07-04 13:23 | disposition home or self-care (01) ==
LOC: ANHED 08:13 → ANH3MEDSUR 09:09 → ANH3MED 09:41
PROVIDERS: Internal Medicine Critical Care Medicine; Internal Medicine Gastroenterology; Physician Assistant; Admitting Provider Internal Medicine; Emergency Provider Student in an Organized Health Care Education/Training Program; PCP Internal Medicine; Visit Provider Internal Medicine
PROC: 0DJ08ZZ Inspection of Upper Intestinal Tract, Via Natural or Artificial Opening Endoscopic (ICD-10-PCS; CPT 43235; principal; 2023-07-03 14:00)
DX: K29.70 Gastritis, unspecified, without bleeding (principal); F41.9 Anxiety disorder, unspecified; J45.909 Unspecified asthma, uncomplicated; K76.0 Fatty (change of) liver, not elsewhere classified; Z90.49 Acquired absence of other specified parts of digestive tract; R73.9 Hyperglycemia, unspecified; Z20.822 Contact with and (suspected) exposure to COVID-19; M19.90 Unspecified osteoarthritis, unspecified site; Z87.891 Personal history of nicotine dependence; Z79.1 Long term (current) use of non-steroidal anti-inflammatories (NSAID); Z79.899 Other long term (current) drug therapy
CPT/HCPCS: 43239; 36415; 71045; 74174; 80048; 80053; 83036; 83605; 83690; 83735; 84484; 84703; 85025; 85027; 85610; 85730; 86140; 87637; 88305; 93005; 96361; 96372; 96374; 96375; 96376; 99285; A9270; G0378; J0500; J2001; J2270; J2405; J2704; J7030; J7120; Q9967

== ENCOUNTER 2025-03-29 09:36 | Emergency (ER) | payer SELFPAY ==
[2025-03-29 09:48] VITALS: BP 129/68; PULSE 63; RESP 16; TEMP 36.6; O2SAT 100
--- OUTSIDE RECORDS SUMMARY | 2025-03-29 10:29 | XMS_ITS | Data Portability ---
Author Organization [place] - [employer], Main Office Address [address] [place] [address] Assessment Encounter Date Assessment Date Assessment LastModified by Organization Details LastModified Time 09/23/2022 09/23/2022 Refill meloxicam I would recommend a 2nd opinion by the breast surgeon see me back in 3-4 months [email or web address] Not available 10/26/2022 21:02:14 Plan of Treatment Reminders Order Date Submit Date Provider Last Modified By Organization Details Last Modified Time Details Appointments None recorded. Lab CBC w/ auto diff 2023 [facility], [address], [address], [place], [address], 5 05:01:48 CMP, serum or plasma 2023 [facility], [address], [address], [place], [address], 5 05:01:48 lipid panel, serum 2023 024 [facility] (Lab), [address] [place], [address], 4 08:12:10 TSH + free T4, serum 2023 024 [facility], [address], [address], [place], [address], 5 05:01:48 HbA1c (hemoglobi n A1c), blood 2023 024 [facility], [address], [address], [place], [address], 5 05:01:48 Referral breast surgery referral - Please call the pt to make an appt. Thank you 2022 023 ethan Orellana MD, [facility], [address], [place], [address], 3 09:06:23 Procedures None recorded. Surgeries None recorded. Imaging None recorded. Medication Orders alprazolam 0.25 mg tablet 2023 024 [facility], [address], [place], [id number], 4 15:51:21 escitalopr am 10 mg tablet 2023 024 [facility], [address], [place], [id number], 4 15:51:13 albuterol sulfate HFA 90 mcg/actuat ion aerosol inhaler 2023 024 [facility]04753, [address], [place], [id number], 4 15:51:12 meloxicam 15 mg tablet [address] [facility], [address], [place], [id number], 4 15:16:36 Patient TargetsNo targets recorded. Patient Instructions Encounter Date Encounter Id Patient Instructions Last Modified By Organization Details Last Modified Time 09/16/2023 [id number] Follow up in 2 months Obtain labs Prescriptions sent to pharmacy [email or web address] Not available 09/16/2023 15:50:30 Reason for Referral Breast Surgery Referral for Mammography abnormal Please call the pt to make an appt. Thank you Referring Physician: Rosas Amador, Internal Medicine, Encounter Date: 09/23/2022 Results Created Date Observation Date Name Description Value Unit Range Abnormal Flag Note LastModifiedBy Organization Detail LastModifiedTime 04/15/20 22 04/15/2022 TSH thyroid-stim ulating hormone 0.420 uIU/m L 0.465- 4.680 low Not Available [facility] (Lab) [address] [place], [address], 04/15/2022 21:21:49 04/15/20 22 04/15/2022 T3 FREE free T3 3.6 pg/mL 2.77-5 .27 Not Available [facility] (Lab) [address] [place], [address], 04/15/2022 21:19:22 04/15/20 22 04/15/2022 T4 FREE free T4 1.35 NG/dL 0.78-2 .19 Not Available [facility] (Lab) [address] [place], [address], 04/15/2022 21:19:17 04/15/20 22 04/15/2022 LIPID PANEL cholesterol 185 mg/dL 140-19 9 NIH CARMEN NSUS RECOM MENDA TION FOR LIZA STERO L: ADULT CHILD LOW RISK: <200 <170 BORDE RLINE : <200- 239 ----- HIGH RISK: >240 >200 Not Available [facility] (Lab) [address] [place], [address], 04/15/2022 20:52:55 04/15/20 22 04/15/2022 LIPID PANEL triglyceride s 129 mg/dL 0-150 NIH CARMEN NSUS REPOR T RECOM MENDA TION FOR TRIGL YCERI LAM: ADULT CHILD LOW RISK: <150 ----- BODER LINE: 150-1 99 ----- HIGH RISK: >200 ----- Not Available [facility] (Lab) [address] [place], [address], 04/15/2022 20:52:55 04/15/20 22 04/15/2022 LIPID PANEL HDL cholesterol 60 mg/dL 40- Not Available [facility] (Lab) [address] [place], [address], 04/15/2022 20:52:55 04/15/20 22 04/15/2022 LIPID PANEL LDL cholesterol, calculated 99 mg/dL 0-130 NIH CARMEN NSUS REPOR T RECOM MENDA TIONS FOR LDL: ADULT CHILD LOW RISK <130 <110 (OPTI MAL LDL) <100 ----- BORDE RLINE : 130-1 59 ----- HIGH RISK: >160 >130 A TRIGL YCERI DE RESUL T >400 INVAL IDATE S THE CALCU LATIO N FOR LDL FRACT IONAT ION - THE LDL RESUL T WILL NOT BE REPOR CHRISTOPHER. Not Available [facility] (Lab) [address] [place], [address], 04/15/2022 20:52:55 04/15/20 22 04/15/2022 COMPR EHENS RAFAEL METAB OLIC PANEL sodium 143 mmol/ L 137-14 5 Not Available [facility] (Lab) [address] [place], [address], 04/15/2022 20:52:51 04/15/20 22 04/15/2022 COMPR EHENS RAFAEL METAB OLIC PANEL potassium 4.0 mmol/ L 3.5-5. 1 Not Available [facility] (Lab) [address] [place], [address], 04/15/2022 20:52:51 04/15/20 22 04/15/2022 COMPR EHENS RAFAEL METAB OLIC PANEL chloride 108 mmol/ L 98-107 high Not Available [facility] (Lab) [address] [place], [address], 04/15/2022 20:52:51 04/15/20 22 04/15/2022 COMPR EHENS RAFAEL METAB OLIC PANEL carbon dioxide 25 mmol/ L 22-30 Not Available [facility] (Lab) [address] [place], [address], 04/15/2022 20:52:51 04/15/20 22 04/15/2022 COMPR EHENS RAFAEL METAB OLIC PANEL anion gap 14.0 mmol/ L 14-22 Not Available [facility] (Lab) [address] [place], [address], 04/15/2022 20:52:51 04/15/20 22 04/15/2022 COMPR EHENS RAFAEL METAB OLIC PANEL glucose 109 mg/dL 70-99 high Not Available [facility] (Lab) [address] [place], [address], 04/15/2022 20:52:51 04/15/20 22 04/15/2022 COMPR EHENS RAFAEL METAB OLIC PANEL BUN 12 mg/dL 8-19 Not Available [facility] (Lab) [address] [place], [address], 04/15/2022 20:52:51 04/15/20 22 04/15/2022 COMPR EHENS RAFAEL METAB OLIC PANEL creatinine 0.51 mg/dL 0.66-1 .25 low Not Available [facility] (Lab) [address] [place], [address], 04/15/2022 20:52:51 04/15/20 22 04/15/2022 COMPR EHENS RAFAEL METAB OLIC PANEL GFR >60 Refer ence Range : [place] ge GFR Healt hy Adult : >60 mL/mi n/1.7 3 m2 Chron ic Kidne y Disea se: 15-60 mL/mi n/1.7 3 m2 Kidne y Failu re: <15/m L/min /1.73 m2 www.n iddk. nih.g ov The MDRD study equat ion has not been valid ated in child deon <18 years of age; pregn ant women ; the elder ly >85 years of age; or in some racia l or ethni c subgr oups, such as Hispa nics. Outsi de the valid ated amirah eters , estim ated GFR is less accur ate, requi ring clini tesfaye judgm ent on a case- by-ca se basis . Clini tesfaye inter preta tion for other races and ages must be made by the clini jo. The MDRD study equat ion has not been valid ated for the evalu ation of serum creat inine relat ed to nutri noe l statu s or medic ation usage . For perso ns <18 years of age, a pedia tric GFR calcu lator is avail able on the [facility] websi te: https ://nina blair.marcia hassan.o anneliese/pr ofess ional s/kdo qi/gf r_cal culat or Not Available [facility] (Lab) [address] [place], [address], 04/15/2022 20:52:51 04/15/20 22 04/15/2022 COMPR EHENS RAFAEL METAB OLIC PANEL alkaline phosphatase 90 U/L 38-126 Not Available [facility] (Lab) [address] [place], [address], 04/15/2022 20:52:51 04/15/20 22 04/15/2022 COMPR EHENS RAFAEL METAB OLIC PANEL alanine aminotransfe rase 33 U/L 0-35 Not Available [facility] (Lab) [address] [place], [address], 04/15/2022 20:52:51 04/15/20 22 04/15/2022 COMPR EHENS RAFAEL METAB OLIC PANEL aspartate aminotransfe rase 64 U/L 15-37 high Not Available [facility] (Lab) [address] [place], [address], 04/15/2022 20:52:51 04/15/20 22 04/15/2022 COMPR EHENS RAFAEL METAB OLIC PANEL bilirubin, total 1.40 mg/dL 0.20-1 .30 high Not Available [facility] (Lab) [address] [place], [address], 04/15/2022 20:52:51 04/15/20 22 04/15/2022 COMPR EHENS RAFAEL METAB OLIC PANEL calcium 9.5 mg/dL 8.4-10 .2 Not Available [facility] (Lab) [address] [place], [address], 04/15/2022 20:52:51 04/15/20 22 04/15/2022 COMPR EHENS RAFAEL METAB OLIC PANEL total protein 8.5 g/dL 6.3-8. 2 high Not Available [facility] (Lab) [address] [place], [address], 04/15/2022 20:52:51 04/15/20 22 04/15/2022 COMPR EHENS RAFAEL METAB OLIC PANEL albumin 4.8 g/dL 3.4-5. 0 Not Available [facility] (Lab) [address] [place], [address], 04/15/2022 20:52:51 04/15/20 22 04/15/2022 COMPR EHENS RAFAEL METAB OLIC PANEL globulin 3.7 g/dL 2.6-4. 2 Not Available [facility] (Lab) [address] [place], [address], 04/15/2022 20:52:51 04/15/20 22 04/15/2022 COMPR EHENS RAFAEL METAB OLIC PANEL A/G ratio 1.3 ratio 1.0-2. 0 Not Available [facility] (Lab) [address] [place], [address], 04/15/2022 20:52:51 04/15/20 22 04/15/2022 CBC/C OMPLE TE BLD COUNT W/DIF F hematocrit 42.6 % 35.7-4 5.7 Not Available [facility] (Lab) [address] [place], [address], 04/15/2022 19:51:59 04/15/20 22 04/15/2022 CBC/C OMPLE TE BLD COUNT W/DIF F white blood cells 10.0 x10'3 /uL 4.2-10 .8 Not Available [facility] (Lab) [address] [place], [address], 04/15/2022 19:51:59 04/15/20 22 04/15/2022 CBC/C OMPLE TE BLD COUNT W/DIF F red blood cells 4.56 x10'6 /uL 3.80-5 .20 Not Available [facility] (Lab) [address] [place], [address], 04/15/2022 19:51:59 04/15/20 22 04/15/2022 CBC/C OMPLE TE BLD COUNT W/DIF F hemoglobin 13.7 g/dL 12.0-1 5.6 Not Available [facility] (Lab) [address] [facility] [place], [address], 04/15/2022 19:51:59 04/15/20 22 04/15/2022 CBC/C OMPLE TE BLD COUNT W/DIF F mean red cell volume 93.4 fL 82.0-9 9.0 Not Available [facility] (Lab) [address] [place], [address], 04/15/2022 19:51:59 04/15/20 22 04/15/2022 CBC/C OMPLE TE BLD COUNT W/DIF F mean red cell hemoglobin 30.0 pg 27.0-3 3.0 Not Available [facility] (Lab) [address] [place], [address], 04/15/2022 19:51:59 04/15/20 22 04/15/2022 CBC/C OMPLE TE BLD COUNT W/DIF F mean RBC HGB concentratio n 32.2 g/dL 31.0-3 6.0 Not Available [facility] (Lab) [address] [place], [address], 04/15/2022 19:51:59 04/15/20 22 04/15/2022 CBC/C OMPLE TE BLD COUNT W/DIF F red cell distribution width 12.8 % 11.8-1 5.5 Not Available [facility] (Lab) [address] [place], [address], 04/15/2022 19:51:59 04/15/20 22 04/15/2022 CBC/C OMPLE TE BLD COUNT W/DIF F platelets 359 x10'3 /uL 150-40 0 Not Available [facility] (Lab) [address] [place], [address], 04/15/2022 19:51:59 04/15/20 22 04/15/2022 CBC/C OMPLE TE BLD COUNT W/DIF F mean platelet volume 9.6 fL 9.0-12 .4 Not Available [facility] (Lab) [address] [place], [address], 04/15/2022 19:51:59 04/15/20 22 04/15/2022 CBC/C OMPLE TE BLD COUNT W/DIF F neutrophils 64.1 % 39.0-7 2.0 Not Available [facility] (Lab) [address] [place], [address], 04/15/2022 19:51:59 04/15/20 22 04/15/2022 CBC/C OMPLE TE BLD COUNT W/DIF F lymphocytes 27.2 % 16.0-4 7.0 Not Available [facility] (Lab) [address] [place], [address], 04/15/2022 19:51:59 04/15/20 22 04/15/2022 CBC/C OMPLE TE BLD COUNT W/DIF F monocytes 5.9 % 5.0-12 .0 Not Available [facility] (Lab) [address] [place], [address], 04/15/2022 19:51:59 04/15/20 22 04/15/2022 CBC/C OMPLE TE BLD COUNT W/DIF F eosinophils 1.3 % 1.0-7. 0 Not Available [facility] (Lab) [address] [place], [address], 04/15/2022 19:51:59 04/15/20 22 04/15/2022 CBC/C OMPLE TE BLD COUNT W/DIF F basophils 0.9 % 0.0-2. 0 Not Available [facility] (Lab) [address] [place], [address], 04/15/2022 19:51:59 04/15/20 22 04/15/2022 CBC/C OMPLE TE BLD COUNT W/DIF F immature granulocytes 0.6 % 0.00-0 .50 high Not Available [facility] (Lab) [address] [place], [address], 04/15/2022 19:51:59 04/15/20 22 04/15/2022 CBC/C OMPLE TE BLD COUNT W/DIF F neutrophils, absolute count 6.37 x10'3 /uL 1.5-8. 0 Not Available [facility] (Lab) [address] [place], [address], 04/15/2022 19:51:59 04/15/20 22 04/15/2022 CBC/C OMPLE TE BLD COUNT W/DIF F lymphocytes, absolute count 2.71 x10'3 /uL 1.07-3 .43 Not Available [facility] (Lab) [address] [place], [address], 04/15/2022 19:51:59 04/15/20 22 04/15/2022 CBC/C OMPLE TE BLD COUNT W/DIF F monocytes, absolute count 0.59 x10'3 /uL 0.29-0 .99 Not Available [facility] (Lab) [address] [place], [address], 04/15/2022 19:51:59 04/15/20 22 04/15/2022 CBC/C OMPLE TE BLD COUNT W/DIF F eosinophils, absolute count 0.13 x10'3 /uL 0.02-0 .53 Not Available [facility] (Lab) [address] [place], [address], 04/15/2022 19:51:59 04/15/20 22 04/15/2022 CBC/C OMPLE TE BLD COUNT W/DIF F basophils, absolute count 0.09 x10'3 /uL 0.01-0 .08 high Not Available [facility] (Lab) [address] [place], [address], 04/15/2022 19:51:59 04/15/20 22 04/15/2022 CBC/C OMPLE TE BLD COUNT W/DIF F immature granulocytes ,absolute 0.06 x10'3 /uL 0.00-0 .05 high Not Available [facility] (Lab) [address] [place], [address], 04/15/2022 19:51:59 04/15/20 22 04/15/2022 CBC/C OMPLE TE BLD COUNT W/DIF F nucleated red blood cells 0.0 % -0 Not Available [facility] (Lab) [address] [place], [address], 04/15/2022 19:51:59 04/15/20 22 04/15/2022 CBC/C OMPLE TE BLD COUNT W/DIF F NRBC# 0.00 x10'3 /uL Not Available [facility] (Lab) [address] [place], [address], 04/15/2022 19:51:59 04/23/20 22 04/23/2022 COLOG UARD cologuard result reportable negati ve negati ve NEGAT RAFAEL TEST RESUL T. A negat rafael Colog uard resul t indic ates a low likel ihood that a color ectal cance r (CRC) or advan rosita adeno ma (kristina omato us polyp s with more advan rosita pre-m align ant featu res) is prese nt. The [facility] [place] e that a perso n with a negat rafael Colog uard test has a color ectal cance r is less than 1 in 1500 (nega tive predi ctive value >99.9 %) or has an advan rosita adeno ma is less than 5.3% (nega tive predi ctive value 94.7% ). These data are based on a prosp ectiv e cross -sect ional study of 10,00 0 indiv idual s at [place] ge risk for color ectal cance r who were scree ray with both Colog uard and colon oscop y. (Jeff Pierre. et al, N Engl J Med 2014; 370(1 4):12 86-12 97) The nilson l value (refe rence range ) for this assay is negat rafael. COLOG UARD RE-SC REENI NG RECOM MENDA TION: Perio dic color ectal cance r scree dilip is an impor tant part of preve ntive healt hcare for asymp tomat ic indiv idual s at [place] ge risk for color ectal cance r. Follo wing a negat rafael Colog uard resul t, the Ameri can Cance r Socie ty and U.S. Multi -Soci ety Task Force scree dilip guide lines recom mend a Colog uard re-sc reeni ng inter rogelio of 3 years . Refer ences : Ameri can Cance r Socie ty Guide line for Color ectal Cance r Scree dilip: https ://nina w.can cer.o rg/ca ncer/ colon -rect al-ca ncer/ detec tion- diagn osis- stagi ng/ac s-rec ommen datio ns.ht ml.; Ghassan DK, Aamir kauffman CR, Ammy weber JK, Color ectal Cance r Scree dilip: Recom menda tions for Physi cians and Patie nts from the U.S. Multi -Soci ety Task Force on Color ectal Cance r Scree dilip , Teto dave rolog y 2017; 112:1 016-1 030. TEST DESCR IPTIO N: [place] site algor ithmi c sukumar sis of stool DNA-b iomar kers with hemog lobin immun oassa y. Quant itati ve value s of indiv idual bioma rkers are not repor table and are not assoc iated with ind idual bioma rker resul t refer ence range s. Colog uard is inten ded for color ectal cance r scree dilip of adult s of eithe r sex, 45 years or older , who are at [facility] for color ectal cance r (CRC) . Colog uard has been appro tal for use by the U.S. FDA. The perfo rmanc e of Colog uard was estab lishe d in a cross secti onal study of [facility] adult s aged 50-84 . Colog uard perfo rmanc e in patie nts ages 45 to 49 years was estim ated by sub-g roup sukumar sis of near- age group s. Colon oscop ies perfo rmed for a posit rafael resul t may find as the most clini kyle signi alex pierre lesio n: color ectal cance r [4.0% ], advan rosita adeno ma (incl uding sessi le frank christopher polyp s great er than or equal to 1cm diame ter) [20%] or non- advan rosita adeno ma [31%] ; or no color ectal neopl talisha [45%] . These estim ates are deriv ed from a prosp ectiv e cross -sect ional scree dilip study of 10,00 0 indiv idual s at [facility] risk for color ectal cance r who were scree ray with both Colog uard and colon oscop y. (Jeff Cowan et al, N Engl J Med 2014; 370(1 4):12 86-12 97.) Colog uard may produ ce a false negat rafael or false posit rafael resul t (no color ectal cance r or preca ncero us polyp prese nt at colon oscop y follo w up). A negat rafael Colog uard test resul t does not guara ntee the absen ce of CRC or advan rosiat adeno ma (pre- cance r). The curre nt Colog uard scree dilip inter rogelio is every 3 years . (Amer ican Cance r Socie ty and U.S. Multi -Soci ety Task Force ). Colog uard perfo rmanc e data in a 10,00 0 patie nt pivot al study using colon oscop y as the refer ence metho d can be acces sed at the follo wing locat ion: www.e xactl abs.c om/re sults . Addit ional descr iptio n of the Colog uard test proce ss, warni ngs and preca ution s can be found at www.c ologu vitaliy.c om. Not Available [facility] [address], [place], [address], 04/30/2022 02:10:51 05/22/19 23 05/22/2022 APTT APTT 25.4 secon ds 23.4-3 1.4 PLEAS E NOTE NEW APTT REFER ENCE RANGE EFFEC TIVE 05/05 . Not Available [facility] (Lab) [address] [place], [address], 05/22/2022 19:58:40 05/22/19 23 05/22/2022 PROTI ME W/INR protime 9.6 secon ds 9.5-11 .5 Not Available [facility] (Lab) [address] [place], [address], 05/22/2022 19:58:36 05/22/19 23 05/22/2022 PROTI ME W/INR INR 0.9 INR INDIC ATION S 2.0 - 3.0 PROPH YLAXI S: VENOU S THROM BOSIS (HIGH RISK SURGE RY) AND SYSTE PAWAN EMBOL ISM (TISS UE HEART VALVE S, AMI VALVU LAR HEART DISEA SE AND ATRIA L FIBRI LLATI ON). TREAT MENT: VENOU S THROM BOSIS AND PULMO NARY EMBOL ISM BILEA FLET MECHA NICAL VALVE S IN AORTI C POSIT ION. 2.5 - 3.5 MECHA NICAL PROST HETIC HEART VALVE S (TILT ING DISK VALVE S AND BILEA FLET MECHA NICAL VALVE S IN LYNETTE L POSIT ION). PREVE NTION OF RECUR RENT MYOCA RDIAL INFAR CTION . ANTIP HOSPH OLIPI D SYNDR OME. Not Available [facility] (Lab) [address] [place], [address], 05/22/2022 19:58:36 05/22/19 23 05/22/2022 PLATE LET COUNT platelets 311 x10'3 /uL 150-40 0 Not Available [facility] (Lab) [address] [place], [address], 05/22/2022 19:12:23 04/15/20 22 XR, chest , 2 view [facility] [address] [place] [address] Patien t Name: DILCIA CAMPOS Access ion #: [id number] Sex: F : 1960 [id number] Locati on: MO2 Attend ing Physic unique: MICHAEL AMADOR Orderi ng Physic unique: MICHAEL AMADOR Exam Date: 2021 11:21 AM Exam Name: XR CHEST 2V Admitt ing Diagno sis(es ): RADIOL OGY REPORT - FINAL EXAM: XR CHEST 2V HISTOR Y: Shortn ess of breath , histor y of asthma COMPAR SCOTT: None. TECHNI QUE: Two views of the chest were perfor med. FINDIN GS: No pneumo thorax , consol idativ e infilt rates, pleura l effusi ons, or pulmon camron edema. The heart is not enlarg ed. IMPRES GISELLE: Unrema rkable 2 view chest. Page 1 of 2 [facility] Name: DILCIA CAMPOS Access ion #: [id number] Sex: F : 1960 0 Exam Date: 2021 11:21 AM Exam Name: XR CHEST 2V Admitt ing Diagno sis(es ): Create d and electr onical ly signed by: Mario nichols MD Signed Date: 2021 2:39 PM (CT) Dictat ed by: Mario nichols MD DD: 2021 2:39 PM (CT) DT: 2021 2:39 PM (CT) Page 2 of 2 [id number] [facility] ([facility]) [address] [place] [address], [address], 07/16/2022 06:18:49 04/15/20 22 04/15/2022 elect rocar dio am No observ ation record ed. MIGRATION. _[facility] [address], [place], [address], 07/16/2022 06:18:49 04/15/20 22 04/15/2022 elect rocar diogr am No observ ation record ed. MIGRATION. _[facility] [address], [place], [address], 07/16/2022 06:18:49 04/15/20 22 04/15/2022 elect rocma dio am No observ ation record ed. MIGRATION. _[facility] [address], [place], [address], 07/16/2022 06:18:49 12/06/20 22 MAMMO , scree dilip, digit al, bilat eral [facility] [address] [place] [address] [phone] Vivi pierre Name: DILCIA CAMPOS Access ion #: [id number] Sex: F : 1960 4 Locati on: RA2 Attend ing Physic unique: MICHAEL AMADOR Orderi ng Physic unique: MICHAEL AMADOR Exam Date: 8:19 AM Exam Name: DIGITA L JOSÉ MIGUEL BILAT SCREEN Admitt ing Diagno sis(es ): RADIOL OGY REPORT - FINAL EXAM: DIGITA L JOSÉ MIGUEL BILAT SCREEN HISTOR Y: Screen ing mammog stephon 61-yea r-old female with no curren t breast compla ints. The patien gabby has a family histor y of breast cancer in a sister at age 5252 years old. COMPAR SCOTT: None availa ble, baseli ne study. TECHNI QUE: Bilate ral CC and MLO views of the breast s were perfor med. Digita l Mammog criss images were obtain ed. CAD (compu ter assist ed detect ion) was utiliz ed. FINDIN GS: The breast s are almost entire ly fatty. Page 1 of 3 [facility] Vivi pierre Name: DILCIA CAMPOS Access ion #: [id number] Sex: F : 1960 4 Exam Date: 8:19 AM Exam Name: DIGITA L JOSÉ MIGUEL BILAT SCREEN Admitt ing Diagno sis(es ): There is a nodule in the right mid slight ly upper breast seen on both views, possib ly repres enting intram ammary lymph node. No other masses , asymme tries, suspic ious calcif icatio ns, or maksim ectura l distor tion are seen. IMPRES GISELLE: BIRADS 0: Assess ment incomp lete. Need additi onal imagin g evalua tion. Recomm end spot magnif icatio n views of the right mid breast . Additi onal mammog raphic and/or sonogr aphic imagin g may be bhavya white. Accord ing to the [employer], yearly mammog belinda are recomm ended starti ng at age 40 and contin uing as long as the woman is in good health . Clinic al Breast Exam should be part of the period ic health exam-a bout every 3 years for women in their 20s and 30s and every year for women 40 and over. Breast self-e xam is an option for women in their 20s. Any breast change noted on the breast self-e xam she would be report ed prompt ly to [facility]. A negati ve mammog criss report should not discou rage follow -up or biopsy of a clinic ally signif icant findin g and/or abnorm ality. Dense breast tissue may obscur e small neopla sms. This vivi pierre has been entere d into a mammog criss remind er system with a target date for her next mammog stephon. Create d and electr onical ly signed by: Juan sorto MD Signed Date: 9:21 AM (CT) Dictat ed by: Juan sorto MD DD: 9:21 AM (CT) Page 2 of 3 [facility] Vivi pierre Name: DILCIA CAMPOS Access ion #: [id number] Sex: F : 1960 6 Exam Date: 8:19 AM Exam Name: MG CARLOS [place] JOSÉ MIGUEL BILAT SCREEN Admitt ing Diagno sis(es ): DT: 9:21 AM (CT) Page 3 of 3 [id number] [facility] (Imaging) [address] [place], [address], 07/16/2022 06:18:49 04/29/20 22 04/29/2022 [place], echoc ardio gram No observ ation record ed. [id number], [place], [address], 07/16/2022 06:18:49 04/29/20 22 04/29/2022 exerc ise edilbertos s test No observ ation record ed. [id number] [facility] [address], [place], [address], 07/16/2022 06:18:49 05/13/20 22 MAMMO , diagn ostic , digit al, unila teral [facility] [address], [place] [address] Patien t Name: NOAH KauffmanDILCIA Can Access ion #: [id number] Sex: F : 1960 9 Locati on: RA2 Attend ing Physic unique: MICHAEL AMADOR Orderi ng Physic unique: MICHAEL AMADOR Exam Date: 2021 10:41 AM Exam Name: MG DIAG RT SPECIA L VIEW Admitt ing Diagno sis(es ): RADIOL OGY REPORT - FINAL EXAM: MG DIAG RT SPECIA L VIEW HISTOR Y: abnorm al mammog stephon COMPAR SCOTT: 2021 TECHNI QUE: Right breast spot compre ssion views were perfor med. Digita l Mammog criss images were obtain ed. FINDIN GS: The right breast asymme try seen on recent mammog criss does not resolv e with the additi onal imagin g. IMPRES GISELLE: BIRADS 0: Assess ment incomp lete. Need additi onal imagin g evalua tion. Page 1 of 2 [facility] Patidejna t Name: NOAH Kauffman DILCIA L Access ion #: [id number] Sex: F : 1960 9 Exam Date: 2021 10:41 AM Exam Name: MG DIAG RT SPECIA L VIEW Admitt ing Diagno sis(es ): Recomm end ultras ound of the right breast asymme try. Create d and electr onical ly signed by: Mario nichols MD Signed Date: 2021 11:03 AM (CT) Dictat ed by: Mario nichols MD DD: 2021 11:03 AM (CT) DT: 2021 11:03 AM (CT) Page 2 of 2 [id number] [facility] (Imaging) [address] [place], [address], 07/16/2022 06:18:49 05/15/20 22 US, brelisa t, unila teral [facility] [address] [facility] [address] Patidejan t Name: DILCIA CAMPOS Access ion #: [id number] Sex: F : 1960 9 Locati on: RA2 Attend ing Physic unique: MICHAEL AMADOR Orderi Physic unique: MICHAEL AMADOR Exam Date: 2021 11:05 AM Exam Name: US BREAST LIMITE D RT Admitt ing Diagno sis(es ): RADIOL OGY REPORT - FINAL EXAM: US BREAST LIMITE D RT HISTOR Y: abnorm al mammog stephon COMPAR SCOTT: Mammog criss 2021, 2021 TECHNI QUE: Focuse d ultras ound evalua tion of the right breast was perfor med. FINDIN GS: 12 o'cloc k: 1 cm deep to the nipple , imagin g demons trates a 0.7 x 0.5 x 0.8 cm lymph node versus comple x cyst. 12 o'cloc k retroa reolar region , there is a 0.4 x 0.3 x 0.3 cm taller than wide solid- comple x struct ure the taller than wide is a suspic ious featur e. Page 1 of 2 [facility] Patidejan pierre Name: DILCIA CAMPOS Access ion #: [id number] Sex: F : 1960 9 Exam Date: 2021 11:05 AM Exam Name: US BREAST LIMITE D RT Admitt ing Diagno sis(es ): IMPRES GISELLE: BIRADS 4a: Suspic ious: Recomm end ultras ound-g uided biopsy of the 0.4 cm 12 o'cloc k retroa reolar right breast hypoec hoic nodule . Create d and electr onical ly signed by: Mario nichols MD Signed Date: 2021 1:15 PM (CT) Dictat ed by: Mario inchols MD DD: 2021 1:15 PM (CT) DT: 2021 1:15 PM (CT) Page 2 of 2 MIGRATION.[id number] [facility] (Im[facility]) [address] [place], [address], 07/16/2022 06:18:49 05/26/19 23 05/26/2022 US, amber pierre, limit ed [facility] [address] [place] [address] Patien t Name: DILCIA CAMPOS Access ion #: [id number] Sex: F : 1960 7 Locati on: RAD Attend ing Physic unique: MICHAEL AMADOR Orderi Physic unique: MICHAEL AMADOR Exam Date: 05/26/19 23 12:35 PM Exam Name: US BREAST LIMITE D RT Admitt ing Diagno sis(es ): RADIOL OGY REPORT - FINAL EXAM: US BREAST LIMITE D RT HISTOR Y: right breast mass COMPAR SCOTT: None. TECHNI QUE: Focuse d ultras ound evalua tion of the right breast was perfor med. FINDIN GS: No solid mass or cystic lesion s are identi fied about the right breast . The area of asymme try previo usly descri bed on 05/13 2022 appear s repres ent a duct, mildly promin ent. IMPRES GISELLE: Page 1 of 2 [facility] Patidejan t Name: DILCIA CAMPOS Access ion #: [id number] Sex: F : 1960 7 Exam Date: 05/26/19 12:35 PM Exam Name: US BREAST LIMITE D RT Admitt ing Diagno sis(es ): BIRADS 3: Assess ment comple te. Probab ly benign findin gs. Three month ultras ound follow -up sugges christopher. Create d and electr onical ly signed by: Mario nichols MD Signed Date: 05/26/19 3:20 PM (CT) Dictat ed by: Mario nichols MD (CT) (CT) Page 2 of 2 [id number] [facility] (Imaging) [address] [place] [address], [address], 07/16/2022 06:18:49 08/21/1908/20/2022 , patrick calle [facility] [address] [place] [address] [phone] Patien t Name: DILCIA CAMPOS Access ion #: [id number] Sex: F : 1960 1 Locati on: RA2 Attend ing Physic unique: MICHAEL AMADOR [facility] unique: MICHAEL AMADOR Exam Date: 08/21/19 8:16 AM Exam Name: US BREAST LIMITE D RT Admitt ing Diagno sis(es ): RADIOL OGY REPORT - FINAL EXAM: US BREAST LIMITE D RT HISTOR Y: right breast follow up COMPAR SCOTT: None. TECHNI QUE: Focuse d ultras ound evalua tion of the right breast was perfor med. FINDIN GS: Imagin g demons trates a circum scribe d stable 2.7 x 2.2 x 2.8 cm IMPRES GISELLE: BIRADS 3: Assess ment comple te. Probab ly benign findin gs. Three- month interv al ultras ound follow -up of the 0.28 cm right breast nodule recomm ended. Page 1 of 2 [facility] Patien t Name: DILCIA CAMPOS Access ion #: [id number] Sex: F : 1960 1 Exam Date: 08/21/19 8:16 AM Exam Name: US BREAST LIMITE D RT Admitt ing Diagno sis(es ): Create d and electr onical ly signed by: Mario nichols MD Signed Date: 08/21/19 8:31 AM (CT) Dictat ed by: Mario nichols MD (CT) (CT) Page 2 of 2 [id number] [facility] (Imaging) [address] [place], [address], 09/24/2022 11:34:00 07/01/19 24 07/01/2023 CT, abdom en + pelvi s, w/ contr ast No observ ation record ed. [address], [address], 07/07/2023 14:13:39 07/02/19 24 07/02/2023 XR, chest No observ ation record ed. [address], [address], 07/07/2023 14:15:14 07/02/19 24 07/02/2023 CT, abdom en + pelvi s, w/ contr ast No observ ation record ed. [address], [address], 07/07/2023 14:15:55 Result Notes Documentation Provider Name and Address Organization Details Recorded Time Xr, Chest, 2 View : [facility] [address] [place] [address] Patient Name: DILCIA ARZOLA Sex: F : 1960 Location: [place]2 Attending Physician: ROSAS AMADOR Ordering Physician: ROSAS AMADOR Exam Date: 04/15/2022 11:21 AM Exam Name: XR CHEST 2V Admitting Diagnosis(es): RADIOLOGY REPORT - FINAL EXAM: XR CHEST 2V HISTORY: Shortness of breath, history of asthma COMPARISON: None. TECHNIQUE: Two views of the chest were performed. FINDINGS: No pneumothorax, consolidative infiltrates, pleural effusions, or pulmonary edema. The heart is not enlarged. IMPRESSION: Unremarkable 2 view chest. Page 1 of 2 [facility] Patient Name: DILCIA ARZOLA Sex: F : 1960 Exam Date: 04/15/2022 11:21 AM Exam Name: XR CHEST 2V Admitting Diagnosis(es): Created and electronically signed by: Mario Evans MD Signed Date: 04/15/2022 2:39 PM (CT) Dictated by: Mario Evans MD (CT) (CT) Page 2 of 2 Not Available [facility] 07/16/2022 06:18:50 Mammo, Screening, Digital, Bilateral : [address] [address] Patient Name: DILCIA ARZOLA Sex: F : 1960 Location: [facility] Attending Physician: ROSAS AMADOR Ordering Physician: ROSAS AMADOR Exam Date: 04/22/2022 8:19 AM Exam Name: MG DIGITAL JOSÉ MIGUEL BILAT SCREEN Admitting Diagnosis(es): RADIOLOGY REPORT - FINAL EXAM: MG DIGITAL JOSÉ MIGUEL BILAT SCREEN HISTORY: Screening mammogram 61-year-old female with no current breast complaints. The patient has a family history of breast cancer in a sister at age 5252 years old. COMPARISON: None available, baseline study. TECHNIQUE: Bilateral CC and MLO views of the breasts were performed. Digital Mammography images were obtained. CAD (computer assisted detection) was utilized. FINDINGS: The breasts are almost entirely fatty. Page 1 of 3 [facility] Patient Name: DILCIA ARZOLA Sex: F : 1960 Exam Date: 04/22/2022 8:19 AM Exam Name: DIGITAL JOSÉ MIGUEL BILAT SCREEN Admitting Diagnosis(es): There is a nodule in the right mid slightly upper breast seen on both views, possibly representing intramammary lymph node. No other masses, asymmetries, suspicious calcifications, or architectural distortion are seen. IMPRESSION: BIRADS 0: Assessment incomplete. Need additional imaging evaluation. Recommend spot magnification views of the right mid breast. Additional mammographic and/or sonographic imaging may be warranted. According to the [employer], yearly mammograms are recommended starting at age 40 and continuing as long as the woman is in good health. Clinical Breast Exam should be part of the periodic health exam-about every 3 years for women in their 20s and 30s and every year for women 40 and over. Breast self-exam is an option for women in their 20s. Any breast change noted on the breast self-exam she would be reported promptly to the patient's health care provider. A negative mammography report should not discourage follow-up or biopsy of a clinically significant finding and/or abnormality. Dense breast tissue may obscure small neoplasms. This patient has been entered into a mammography reminder system with a target date for her next mammogram. Created and electronically signed by: Juan Fairchild MD Signed Date: 04/22/2022 9:21 AM (CT) Dictated by: Juan Fairchild MD (CT) Page 2 of 3 [facility] Patient Name: DILCIA ARZOLA Can Sex: F : 1960 Exam Date: 04/22/2022 8:19 AM Exam Name: DIGITAL JOSÉ MIGUEL BILAT SCREEN Admitting Diagnosis(es): (CT) Page 3 of 3 Not Available [facility] 07/16/2022 06:18:50 Mammo, Diagnostic, Digital, Unilateral : [address] [address] Patient Name: DILCIA ARZOLA Can Sex: F : 1960 Location: [facility] Attending Physician: ROSAS AMADOR Ordering Physician: ROSAS AMADOR Exam Date: 05/13/2022 10:41 AM Exam Name: MG DIAG RT SPECIAL VIEW Admitting Diagnosis(es): RADIOLOGY REPORT - FINAL EXAM: MG DIAG RT SPECIAL VIEW HISTORY: abnormal mammogram COMPARISON: 04/22/2022 TECHNIQUE: Right breast spot compression views were performed. Digital Mammography images were obtained. FINDINGS: The right breast asymmetry seen on recent mammography does not resolve with the additional imaging. IMPRESSION: BIRADS 0: Assessment incomplete. Need additional imaging evaluation. Page 1 of 2 [facility] Patient Name: DILCIA ARZOLA Sex: F : 1960 Exam Date: 05/13/2022 10:41 AM Exam Name: DIAG RT SPECIAL VIEW Admitting Diagnosis(es): Recommend ultrasound of the right breast asymmetry. Created and electronically signed by: Mario Evans MD Signed Date: 05/13/2022 11:03 AM (CT) Dictated by: Mario Evans MD (CT) (CT) Page 2 of 2 Not Available [facility] 07/16/2022 06:18:50 Problems Name Problem SNOMED Code Status Onset Date Resolution Date Notes Provider Name and Address Organization Details Recorded Time Acute gastritis 09240033 Active Allyson Ren APRN [address], [place], [address] , [employer] 4 13:55:54 Gallstone 446633155 Active 2016 Not Available [facility] 4 21:24:54 Depressive disorder 23884463 Active 2018 Not Available [facility] 4 21:24:54 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 7545734132904 9102 Active 2019 Allyson Ren APRN [address], [place], [address] , [employer] 4 15:30:10 Current tear of medial cartilage AND/OR meniscus of knee Active 2019 Not Available [facility] 4 21:24:54 Pain in left knee Active 2019 Not Available [facility] 4 21:24:54 Chondromal acia of right patella 4650058820789 9108 Active 2019 Not Available [facility] 4 21:24:54 Tear of medial meniscus of knee 325223860 Active 2020 Not Available [facility] 4 21:24:54 Dyspnea 892679159 Active 2021 Not Available [facility] 4 21:24:54 Osteoarthr itis 949934257 Active 2021 Allyson Ren APRN [address], [address], [place], [address] , [employer] 4 15:30:02 Skin lesion 21803822 Active 2021 Not Available [facility] 4 21:24:54 Mammograph y abnormal 759359988 Active 2021 Not Available [facility] 4 21:24:54 Anxiety 84086736 Active 2022 Allyson Ren APRN [address], [address], [place], [address] , [employer] 4 15:29:51 Ultrasonog criss of breast abnormal 7054143223942 9104 Active 2022 Not Available [facility] 4 21:24:54 Asthma 246715099 Active 2023 Allyson Ren APRN [address], [address], [place], [address] , [employer] 4 15:46:32 Problem Notes None recorded. Procedures Surgical History Date Name Laterality Status Provider Name and Address Organization Details Recorded Time Knee completed Not Available [facility] 05/2022 06:10:16 Hysterectomy completed Not Available [facility] 07/16/2022 06:10:16 Gallbladder Surgery completed Not Available [facility] 07/16/2022 06:10:16 Imaging Results None recorded. Procedure Notes None recorded. Medical Equipment None Reported. Allergies Allergen ID Allergen Name Allergen Category Reaction Reaction Severity Criticality Documentation Date Start Date Code Code System Note Provider Name and Address Organization Details Recorded Time 15004 No known allergy (situatio n) Not available Not available Not available Not available 09/15/2023 67649 6003 SNOMED Allysonshalonda Ren, [employer] [address] [facility], [address], [place], [address] , [facility] [employer] 4 13:55:23 No known drug allergies Medications Name Sig Start Date Stop Date Status Note LastModified by Organization Details LastModified Time bupropion HCl SR 150 mg tablet,12 hr sustained -release TAKE 1 TABLET BY MOUTH TWICE A DAY 03/28 completed Not Available Not Available Not Available venlafaxi ne ER 37.5 mg capsule,e xtended release 24 hr Take 1 capsule( s) every day by oral route. 03/28 completed Not Available Not Available Not Available ofloxacin 0.3 % eye drops 09/15 completed Not Available Not Available Not Available hydrocodo ne 5 mg-acetam inophen 325 mg tablet TAKE 1 TABLET BY MOUTH EVERY 4 HOURS NEEDED 03/28 completed Not Available Not Available Not Available Isovue-37 0 76 % intraveno us solution 100 mL by intraven . route. 06/30 completed Not Available Not Available Not Available meloxicam 15 mg tablet TAKE 1 TABLET BY MOUTH EVERY DAY 09/15 completed Not Available Not Available Not Available ondansetr on HCl 4 mg tablet TAKE 1 TABLET BY MOUTH THREE TIMES A DAY NEEDED 03/28 completed Not Available Not Available Not Available lactated Ringers intraveno us solution 1000 mL by intraven . route. 06/30 completed Not Available Not Available Not Available ciproflox acin 500 mg tablet TAKE 1 TABLET BY MOUTH EVERY 12 HOURS 09/15 completed Not Available Not Available Not Available ketorolac 0.5 % eye drops 09/15 completed Not Available Not Available Not Available meloxicam 7.5 mg tablet medicati on:melox icam 7.5 mg tablet d ose:0.0 route:B Y MOUTH fr equency: PRN 09/15 completed Not Available Not Available Not Available alprazola m 0.25 mg tablet TAKE 1 TABLET BY MOUTH TWICE DAILY NEEDED active Not Available Not Available No t Available prednisol one acetate 1 % eye drops,patricia pension 09/15 completed Not Available Not Available Not Available Zoloft 50 mg tablet Take 1 tablet every day by oral route. 01/26 completed Not Available Not Available Not Available dicyclomi ne 20 mg tablet TAKE 1 TABLET BY MOUTH FOUR TIMES DAILY 09/15 completed Not Available Not Available Not Available Kenalog 10 mg/mL suspensio n for injection In office injectio n administ ered by the provider 04/15 completed [facility]: [id number] - Not Available Not Available Not Available pantopraz ole 40 mg tablet,de layed release Take 1 tablet every day by oral route. 03/28 completed Not Available Not Available Not Available lidocaine HCl 2 % mucosal solution 15 mL by mucous mem route. 06/30 completed Not Available Not Available Not Available omeprazol e 20 mg capsule,d elayed release Take 2 capsules every day by oral route. active Not Available Not Available No t Available sodium chloride 0.9 % intraveno us solution 50 mL by intraven . route. 06/30 completed Not Available Not Available Not Available albuterol sulfate HFA 90 mcg/actua tion aerosol inhaler INHALE 2 PUFFS BY MOUTH EVERY 4 HOURS active Not Available Not Available No t Available Zoloft 100 mg tablet Take 1 tablet(s ) every day by oral route. 09/28 completed stopped at visit 09/28/18 Not Available Not Available Not Available Benadryl 25 mg capsule Take 3 capsules every day by oral route at bedtime. 03/19 completed Not Available Not Available Not Available escitalop stephon 10 mg tablet TAKE 1 TABLET BY MOUTH EVERY DAY active Not Available Not Available No t Available Mag-Al Plus 200 mg-200 mg-20 mg/5 mL oral suspensio n 30 mL by oral route. 06/30 completed Not Available Not Available Not Available naproxen 05/22 completed Not Available Not Available Not Available Multiple Vitamin, Womens 2021 active Not Available Not Available Not Avai lable lidocaine (PF) 10 mg/mL (1 %) injection solution In office injectio n administ ered by the provider 04/15 completed [facility]: [id number] 6-17 Not Available Not Available Not Available ondansetr on HCl (PF) 4 mg/2 mL injection solution 4 mg by injectio n route. 06/30 completed Not Available Not Available Not Available melatonin 5 mg capsule Take by oral route. 11/21 completed Not Available Not Available Not Available Suprep Bowel Prep Kit 17.5 gram-3.13 gram-1.6 gram oral solution DIRECTED 03/28 completed Not Available Not Available Not Available morphine 2 mg/mL intraveno us syringe 2 mg by intraven . route. 06/30 completed Not Available Not Available Not Available albuterol sulfate 90 mcg/actua tion breath activated powder inhaler Inhale 2 puffs every 4 hours by inhalati on route as needed. 03/26 completed Not Available Not Available Not Available Flucelvax Quad (PF) 60 mcg (15 mcg x 4)/0.5 mL IM syringe ADM 0.5ML IM UTD 06/14 completed Not Available Not Available Not Available Vitals Date Recorded Body mass index (BMI) Body height Heart rate Body temperature Body weight Systolic And Diastolic Provider Name and Address Organization Details Last Updated DateTime 3 32.1 kg/m2 165.1 cm 94 /min 97.7 [degF] 52884.3 3 g 122/80 mm[Hg] Not Available [facility] 3 06:13:11 Date Recorded Body mass index (BMI) Body height Heart rate Body temperature Body weight Systolic And Diastolic Provider Name and Address Organization Details Last Updated DateTime 3 31.8 kg/m2 165.1 cm 105 /min 97.8 [degF] 74620.1 4 g 134/90 mm[Hg] Not Available [facility] 3 06:13:11 Date Recorded Body height Body mass index (BMI) Body weight Body temperature Heart rate Oxygen saturation Oxygen saturation in Arterial blood by Pulse oximetry Systolic And Diastolic Provider Name and Address Organization Details Last Updated DateTime 4 165.1 cm 29 kg/m2 93433.8 7 g 97.2 [degF] 98 /min 98 % 98 % 118/72 mm[Hg] Flaca Grijalva MA [employer] [facility] 4 15:15:45 Date Recorded Body height Body mass index (BMI) Body weight Body temperature Heart rate Oxygen saturation Oxygen saturation in Arterial blood by Pulse oximetry Systolic And Diastolic Provider Name and Address Organization Details Last Updated DateTime 3 165.1 cm 32.6 kg/m2 70124.1 g 97.3 [degF] 77 /min 97 % 97 % 118/70 mm[Hg] Coleen Hyman RN [employer] [facility] 3 11:08:29 Date Recorded Body mass index (BMI) Body height Heart rate Body temperature Body weight Systolic And Diastolic Provider Name and Address Organization Details Last Updated DateTime 2 32.4 kg/m2 165.1 cm 97 /min 98.4 [degF] 26354.5 1 g 132/88 mm[Hg] Not Available [facility] 3 06:13:11 Social History Question Answer Notes LastModified by Organizat ion Details LastModified Time Tobacco Smoking Status Never Smoker GLORIA Martinez, [employer] [facility] 09/23/2022 10:42:56 Do You Have An Advance Directive? No [id number] Information not available 07/16/2022 What Is Your Level Of Caffeine Consumption? Moderate [id number] Information not available 07/16/2022 In The 14 Days Before Symptom Onset, Have You Had Close Contact With A Laboratory-confir med COVID-19 While That Case Was Ill? No Information not available 09/23/2022 In The 14 Days Before Symptom Onset, Have You Had Close Contact With A Person Who Is Under Investigation For COVID-19 While That Person Was Ill? No Information not available 09/23/2022 What Type Of Diet Are You Following? REGULAR [id number] Information not available 07/16/2022 What Is The Highest Grade Or Level Of School You Have Completed Or The Highest Degree You Have Received? [id number] Information not available 09/23/2022 Have There Been Any Changes To Your Family Or Social Situation? No Information no t available 09/23/2022 What Is The Fluoride Status Of Your Home? Unknown Information not available 09/23/2022 Do You Use Insect Repellent Routinely? No Information not available 09/23/2022 Where Do You Live? [facility] Information not available 09/23/2022 Do You Have A Medical Power Of Ladies' Hat Trimmer? No Information not available 09/23/2022 What Was The Date Of Your Most Recent Tobacco Screening? 09/16/2023 [email or web address] Information not available 09/16/2023 Have You Ever Been Counseled For Unhealthy Alcohol Use? No [email or web address] Information not available 09/23/2022 Do You Have Any Pets? Yes Information not available 09/23/2022 What Is Your Relationship Status? [id number] Information not available 07/16/2022 Do You Use Your Seat Belt Or Car Seat Routinely? Yes [email or web address] Information not available 09/23/2022 Do You Have Smoke And Carbon Monoxide Detectors In Your Home? Yes Information not available 09/23/2022 Are You Passively Exposed To Smoke? No Information no t available 09/23/2022 Are There Any Smokers In Your House? No Information not available 09/23/2022 Do You Use Sunscreen Routinely? No Information not available 09/23/2022 Has Tobacco Cessation Counseling Been Provided? No Information not available 09/23/2022 Have You Recently Traveled Abroad? No Information not available 09/23/2022 Do You Have Any Dietary Restrictions? No Information not available 09/23/2022 Sex: Female Functional Status Question Answer Note LastModified by Organizat ion Details LastModified Time Do you use any illicit or recreational drugs? No Information not available 09/23/2022 Do you or have you ever used any other forms of tobacco or nicotine? No Information not available 09/23/2022 What is your level of alcohol consumption? Occasional [id number] Information not available 07/16/2022 Are you currently employed? 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 None [id number] Information not available 07/16/2022 Mental Status Question Answer Note LastModified by Organization D etails LastModified Time Do you feel stressed (tense, restless, nervous, or anxious, or unable to sleep at night)? [id number] Information not available 09/23/2022 Family History Relationship Description Onset Age of this Age Resolved Age Notes LastModified by Organization Details LastModified Time Sister Family history of malignant neoplasm [id number] Not available 07/16/2022 06:10:17 Brother Family history of lupus erythematosu s [id number] Not available 07/16/2022 06:10:17 Medical History Condition Response HAVE YOU BEEN HOSPITALIZED OR SEEN IN [facility] IN THE PAST YEAR ? N Gynecological History Statement/Question Response How many live births 2 If Post Menopausal, Age at Menopause 42 Date of Last Colonoscopy Date of Last Mammogram Most Recent Bone Density Date of LMP Date of Last Pap Current Control Method Hysterectom y Obstetrics History GPAL:G 2 P 2 0 0 2 Type Value Multiple Births 0 Full Term 2 Induced 0 Spontaneous 0 Premature 0 Living 2 Ectopics 0 Total 2 Immunizations Vaccine Type Date Status Note Provider [facility] e and Address Organization Details Recorded Time Influenza, MDCK, quadrivalent, PF 0 completed Allyson Ren APRN [address], [place], [address], [employer] [facility] [employer] 09/15/2023 13:56:57 Influenza, MDCK, quadrivalent, PF 2 completed Allyson Ren APRN [address], [address], [place], [address], [facility] [employer] [facility] [employer] 09/15/2023 13:56:57 COVID-19, mRNA, LNP-S, PF, 30 mcg/0.3 mL dose 1 completed Allyson Ren APRN [address], [address], [place], [address], [facility] [employer] [facility] 09/15/2023 13:56:57 COVID-19, mRNA, LNP-S, PF, 30 mcg/0.3 mL dose 1 completed Allyson Ren APRN [address], [address], [place], [address], [facility] [employer] [facility] 09/15/2023 13:56:57 COVID-19, mRNA, LNP-S, PF, 30 mcg/0.3 mL dose, georgette-sucrose 2 completed Allyson Ren APRN [address], [address], [place], [address], [facility] [employer] [facility] 09/15/2023 13:56:57 COVID-19, mRNA, LNP-S, bivalent, PF, 30 mcg/0.3 mL dose 2 completed Allyson Ren APRN [address], [address], [place], [address], [facility] [employer] [facility] 09/15/2023 13:56:57 Influenza, split virus, trivalent, preservative 1 completed Allyson Ren APRN [address], [address], [place], [address], [facility] [employer] [facility] 09/15/2023 13:56:57 COVID-19, mRNA, LNP-S, PF, georgette-sucrose, 30 mcg/0.3 mL 3 completed Allyson Ren APRN [address], [address], [place], [address], [facility] [employer] [facility] 11/16/2023 08:02:52 Influenza, split virus, quadrivalent, PF 3 completed Allyson Ren APRN [address], [place], [address], [facility] [employer] [facility] 11/16/2023 08:02:52 COVID-19, mRNA, LNP-S, PF, 10 mcg/0.2 mL dose, georgette-sucrose 2 completed Allyson Ren APRN [address], [place], [address], [facility] [employer] [facility] 09/15/2023 13:56:57 COVID-19, mRNA, LNP-S, PF, 10 mcg/0.2 mL dose, georgette-sucrose 2 completed Allyson Ren APRN [address], [address], [place], [address], [facility] [employer] [facility] 09/15/2023 13:56:57 COVID-19, mRNA, LNP-S, PF, 10 mcg/0.2 mL dose, georgette-sucrose 1 completed Allyson Ren APRN [address], [address], [place], [address], [facility] [employer] [facility] 09/15/2023 13:56:57 COVID-19, mRNA, LNP-S, PF, 10 mcg/0.2 mL dose, georgette-sucrose 1 completed Allyson Ren APRN [address], [address], [place], [address], [facility] [employer] [facility] 09/15/2023 13:56:57 Influenza, split virus, quadrivalent, preservative 0 completed Allyson Ren APRN [address], [place], [address], [facility] [employer] [facility] 09/15/2023 13:56:57 COVID-19, mRNA, LNP-S, PF, 30 mcg/0.3 mL dose 1 completed Allyson Ren APRN [address], [place], [address], [facility] [employer] [facility] 09/15/2023 13:56:57 Past Encounters Encounter ID Performer Location Encounter Start Date Encounter Closed Date Diagnosis/Indication Diagnosis SNOMED-CT Code Diagnosis ICD10 Code Diagnosis IMO Codes Diagnosis Note [id number] Rosas Amador MD [facility] [place] Chandni norris [address] [place] [address] [facility] [place] [address] 04/15/2022 00:00:00 05/07/2022 22:09:54 [id number] Rosas Amador MD [facility] Internal Med Chandni norris [address] [place] [address] [place] [address] 05/22/2022 00:00:00 06/08/2022 21:28:56 [id number] Rosas Amador MD [facility] Internal Med Chandni norris [address] [place] [address] [place] [address] 09/23/2022 10:41:38 09/23/2022 12:11:49 Mammography abnormal 445430181 R92.8 [id number] Erin carpenter MD [facility] Internal Med Chandni norris [address] [place] [address] [place] [address] 09/16/2023 14:48:14 09/16/2023 16:00:03 Anxiety 07364715 F41.9 Asthma 126786377 J45.90 9 Diabetes m ellitus screening 539348631 Z13.1 Hyperlipid emia screening 572017934 Z13.220 Screening for disorder 584005751 Z13.9 Thyroid di sorder screening 892254483 Z13.29 Health Concerns Section Related Observation LastModified by Organization Detai ls LastModified Time None Recorded Concern Status LastModified by Organization Details LastModified Time None Recorded Advance Directives Directive N: Payers Encounter Date Sequence Insurance Name Policy Number Policy Fletcher Covered Member ID Fletcher Member ID Guarantor Name 09/23/2022 1 [facility] [id number] iDlcia Arzola [id number] Dilcia Arzola 09/16/2023 1 [facility] [id number] Dilcia Arzola [id number] Dilcia Arzola Notes Date Note Type Note Provider Name and Address Organization Details Recorded Time 09/23/2022 text/html She was told by the radiologist she did not need a biopsyMeloxicam working on her arthritic pain she would like to have that refilled Roass Amador MD [address] [place] [address], [place], [address], [facility] [employer] [facility] 10/26/2022 21:02:31 09/16/2023 text/html Leyda presents today to establish care. She states that she was in the ED 3 times in one day due to stress induced abdominal pain. She ended up spending a couple of days. She states that she does have anxiety that causes her stress to increase. Allyson Ren, [employer] [address] [facility], [facility] [address], [place], [address], [facility] 09/16/2023 16:00:41 OBGyn Episode No OBEpisode recorded.
--- NOTE | 2025-03-29 12:16 | PC.NURSE ---
pt ambulated out of ED, did not want to wait any longer
== END 2025-03-29 12:44 | disposition left against medical advice (07) ==
LOC: ANHED 12:21
PROVIDERS: PCP Internal Medicine
DX: R51.9 Headache, unspecified (principal)
CPT/HCPCS: 99199